=== PATIENT | female | born 1950 | race Caucasian/White ===

== ENCOUNTER 2020-06-08 12:00 | Outpatient (REF) | payer OTHER, SELFPAY | END 2020-06-08 12:01 | disposition home or self-care (01) | LOC: HO.10HDL 12:00 | PROVIDERS: Visit Provider Otolaryngology | DX: B37.9 Candidiasis, unspecified (principal) | CPT/HCPCS: 87102 ==

== ENCOUNTER 2020-09-01 11:47 | Inpatient (IN) | payer MEDICARE, BC, SELFPAY ==
[2020-09-01] VITALS (8 sets, daily range): BP systolic 111–151; BP diastolic 58–79; PULSE 57–84; RESP 16–18; TEMP 36.5–36.9; O2SAT 94–98; BMI 28.0
--- NOTE | ~2020-09-01 | FL_ITS ---
EXAMINATION: FL SMALL BOWEL SERIES CLINICAL INFORMATION: Question intussusception COMPARISON: CT abdomen of September 01, 2020 TECHNIQUE: Following a carbon paper interleafer image of the abdomen, contrast was administered orally, and interval abdominal radiographs were performed to assess for contrast progression through the small bowel. Following contrast transit through the small bowel and into the colon, the patient was placed on the fluoroscopy table, and multiple spot images were obtained. FINDINGS: Instructor Weaving image of the abdomen demonstrates large amount of stool throughout the colon. No dilated loops of large or small bowel are evident. No pneumatosis intestinalis. There is normal transit time of contrast material through the small bowel, with contrast present in the colon by 1 hour 20 minutes. Small bowel loops are of normal caliber throughout the abdomen and pelvis. The jejunal and ileal fold patterns are normal, without evidence of abnormal thickening. No persistent fixed regions of luminal narrowing are seen to suggest stricturing. The terminal ileum demonstrates a normal appearance. On a single image overlying the spine is question of filling defect within a loop of small bowel however this could not be replicated on spot compression views. No dilated bowel is seen adjacent to this site. Reduced intussusception cannot be excluded on this study. FLUOROSCOPY TIME: 2.0 minutes DOSE AREA PRODUCT: 19.8633 Gysq cm FL/FL small bowel follow through IMPRESSION: Normal small bowel series without persistent evidence of intussusception..
--- NOTE | ~2020-09-01 | CT_ITS ---
EXAMINATION: CT ABDOMEN AND PELVIS WITHOUT CONTRAST CLINICAL INFORMATION: Left lower abdominal pain. COMPARISON: None TECHNIQUE: Multidetector volumetric imaging was performed from the superior aspect of the liver through the pubic symphysis. Sagittal and coronal reformatted images were obtained on the technologist's workstation. This CT examination was performed using dose optimization techniques as appropriate, variously including the following: *Automated exposure control *Adjustment of mA and/or kV according to patient size (this includes techniques or standardized protocols for targeted exams where dose is matched to indication/reason for exam; i.e. extremities or head) *Use of iterative reconstruction technique DLP: 472 mGy-cm FINDINGS: LUNG BASES: The visualized lung bases are unremarkable. LIVER, GALLBLADDER, AND BILIARY TREE: The liver is normal in size, shape, and attenuation. No focal hepatic lesion or biliary ductal dilatation is present. The gallbladder is unremarkable with no evidence of radiopaque gallstones, gallbladder wall thickening, or obvious pericholecystic inflammatory changes. PANCREAS: Unremarkable. SPLEEN: Unremarkable. ADRENAL GLANDS: Unremarkable. KIDNEYS AND URETERS: The kidneys are normal in size, shape, and attenuation. No hydronephrosis, hydroureter, or calculi seen. No perinephric stranding. BLADDER: Unremarkable. GASTROINTESTINAL TRACT: There is moderate stool and gas seen throughout the colon without significant distention. The small bowel loops are mildly prominent with fluid. There is a abnormal small bowel segment which appears to be intussuscepting or a small intraluminal filling defect on axial image 59/3 ABDOMINAL WALL: No significant hernia is appreciated. LYMPH NODES: Normal. VASCULAR: Unremarkable. PELVIC VISCERA: The uterus is bulky and retroverted question fibroid disease. There is no free fluid. No adnexal mass seen. OSSEOUS STRUCTURES: Unremarkable. CT/CT abdomen pelvis wo con IMPRESSION: Large bulky reported uterus likely fibroid disease. Suspect intussuscepting small bowel loop in the left midabdomen or intraluminal filling defect likely polyp or mass. This is best visualized on axial image 58/3. There is proximal small bowel mild distention with fluid. Mild constipation.
--- NOTE | 2020-09-01 12:50 | ED.GENADULT ---
HPI - General Adult General Chief complaint: General Medical Stated complaint: abd pain Time Seen by Provider: 09/01/20 12:50 Source: patient Mode of arrival: ambulatory Limitations: no limitations History of Present Illness HPI narrative: patient comes in for abdominal distention and pain. Feels at times that her abdomen is bloated for the past few weeks Onset (ago): week(s) Location: abdomen Radiation: non-radiation Severity: moderate Pain Consistency: intermittent Relieving factors: none Exacerbating factors: none Related Data Home Medications Medication Instructions Recorded Confirmed ezetimibe 10 mg PO DAILY 09/01/20 09/01/20 fluticasone propionate 1 spray INTRANASAL BID 09/01/20 09/01/20 loratadine 10 mg PO DAILY 09/01/20 09/01/20 losartan 100 mg PO DAILY 09/01/20 09/01/20 cholecalciferol (vitamin D3) 25 25 mcg PO DAILY 09/09/20 mcg (1,000 unit) capsule Previous Rx's Medication Instructions Recorded docusate sodium [Colace] 100 mg PO BID #60 cap 09/03/20 Allergies Allergy/AdvReac Type Severity Reaction Status Date / Time heparin Allergy Abdominal Verified 09/09/20 15:02 Pain Review of Systems Constitutional: Constitutional: Reports no additional constitutional complaints Eyes: Eyes: Reports no additional eye complaints ENT: Denies dizziness Cardiovascular: Cardiovascular: Reports no additional cardiovascular complaints Respiratory: Respiratory: Reports as per HPI Gastrointestinal: Gastrointestinal: Reports no additional gastrointestinal complaints Genitourinary: Genitourinary: Reports no additional female genitourinary complaints Musculoskeletal: Musculoskeletal: Reports no additional musculoskeletal complaints Integumentary/Breasts: Skin/Breast: Denies rash Neurologic: Reports system reviewed and no additional complaints, except as documented, Denies dizziness and Denies Sensory deficit (Neuro) Psychiatric: Psychiatric: Denies anxiety PMFSH Past Medical History Medical History Abdominal pain HTN (hypertension) with goal to be determined Optic neuritis Social History Social History Household Members: Spouse Housing: House Do you presently have visiting nurse or other home services: No Alcohol intake: current Alcohol intake frequency: holidays/special occasions only Alcohol type: beer, wine and hard liquor Patient Tobacco Use Status: Current someday Tobacco user Tobacco use type: Cigar Physical Exam Vital Signs: Vital Signs: Last Vital Signs Temp 97.1 F 09/03/20 08:00 Pulse 64 09/03/20 08:00 Resp 16 09/03/20 08:00 BP 127/73 09/03/20 08:00 Pulse Ox 98 09/03/20 08:00 Body Mass Index 28.0 Const: General: healthy appearing Nutritional Appearance: average body habitus Orientation/consciousness: oriented to person and patient oriented x3 Limitations: no limitations HENMT: Head: Yes normal to inspection Ears: external ears normal General nose exam: Normal external nose present Mouth: Normal oral and palatal mucosa present and oropharynx normal Throat: Yes posterior oropharynx normal Eyes: General: appearance normal, both eyes and all related structures Neck: Other: supple Neck: Yes normal visual inspection Chest: Chest palpation & inspection: normal inspection of the chest Resp: Auscultation: clear to auscultation bilaterally Cardio: Jugular venous distension: no JVD Rate: regular rate Rhythm: regular rhythm Heart sounds: S1 normal heart sound present and S2 normal heart sound present GI: Other: left lower abdominal pain Auscultation: normal bowel sounds : General: Yes no CVA tenderness Back/Spine/Pelvis: Back: no CVA tenderness Skin: General skin exam: no rashes or lesions noted Neuro: General: oriented to person and patient oriented x3 Cranial nerves: Yes CN's II-XII intact bilaterally Motor exam (neuro): 5/5 motor strength present throughout Sensory Exam: No Sensory deficit (Neuro) Extrem: General: Yes normal to inspection Psych: Appearance: grossly normal Course Course Course Narrative: Discussed with Dr. Cornejo will see patient Reevaluation(s) Reevaluation #1: Dr. Cornejo will admit the patient Time: 16:12 Medical Decision Making [facility] Narrative Medical decision making narrative: With history and CT the decision is made to admit the patient and get small bowel follow up through Lab Data Result diagrams: 09/01/20 13:04 09/01/20 13:04 Labs: Lab Results 09/01/20 09/01/20 09/01/20 Range/Units 13:00 13:04 13:04 WBC 6.9 (4.8-10.8) X10*3/uL RBC 4.44 (4.20-5.50) X10*6/uL Hgb 14.0 (12.0-16.0) g/dl Hct 40.9 (37-47) % MCV 92.1 (80-98) fL MCH 31.5 (27.0-33.0) pg MCHC 34.2 (31.0-35.0) g/dl RDW 12.6 (11.0-16.0) % Plt Count 295 (160-400) X10*3/uL MPV 10.2 (9.4-12.3) fL Immature Gran % (Auto) 0.3 (0.0-0.4) % Neut % (Auto) 53.1 (45-73) % Lymph % (Auto) 35.7 (20-40) % [place] % (Auto) 8.1 (2-11) % Eos % (Auto) 2.2 (0-4) % Baso % (Auto) 0.6 (0-2) % Lymph # (Auto) 2.5 (1.2-4.9) X10*3/uL [place] # (Auto) 0.6 (0.1-1.2) X10*3/uL Eos # (Auto) 0.2 (0.0-0.4) X10*3/uL Baso # (Auto) 0.0 (0.0-0.2) X10*3/uL Abs Immat Gran (auto) 0.02 (0.00-0.03) X10*3/uL Absolute Neuts (auto) 3.7 (2.0-8.3) X10*3/uL Absolute Nucleated RBC 0.000 (0.0-0.012) X10*3/uL Nucleated RBC % (auto) 0.0 (0.0-0.2) /100WBC Sodium 139 (135-145) mmol/L Potassium 4.3 (3.3-5.1) mmol/L Chloride 106 (96-108) mmol/L Carbon Dioxide 22 (22-29) mmol/L Anion Gap 15 (12-20) BUN 10 (9-16) mg/dL Creatinine 0.70 (0.5-1.4) mg/dL Estim Creat Clear Calc 72.9 Estimated GFR > 60 Random Glucose 135 H (60-115) mg/dL Calcium 9.6 (8.4-10.2) mg/dL Total Bilirubin 0.9 (0.0-1.0) mg/dL Direct Bilirubin 0.3 (0.0-0.5) mg/dL AST 21 (5-31) U/L ALT 28 (0-31) U/L Alkaline Phosphatase 85 (39-117) U/L Total Protein 6.9 (6.5-8.0) g/dL Albumin 4.4 (3.5-5.0) g/dL Lipase 15 (8-78) U/L Urine Color STRAW Urine Appearance CLEAR Urine pH 6.0 (5.0-8.0) Ur Specific [place] <= 1.005 (1.005-1.025) Urine Protein NEG (NEG-TRACE) MG/DL Urine Glucose (UA) NEG (NEG) MG/DL Urine Ketones NEG (NEG) MG/DL Urine Blood TRACE (NEG) Urine Nitrite NEG (NEG) Ur Leukocyte Esterase NEG (NEG) Urine RBC 0-2 (0) /HPF Urine WBC 0 (0-4) /HPF Ur Squamous Epith Cells TRACE /LPF Urine Bacteria NONE /LPF Imaging Data CT scan - abdomen: Radiologist's impression: IMPRESSION: Large bulky reported uterus likely fibroid disease. Suspect intussuscepting small bowel loop in the left midabdomen or intraluminal filling defect likely polyp or mass. This is best visualized on axial image 58/3. There is proximal small bowel mild distention with fluid. Mild constipation. ECG Data Attestation: I personally reviewed and interpreted this ECG as follows: Interpretation: normal sinus rate 67, no st or twave changes Discharge Plan Discharge Clinical Impression: Bowel obstruction, Colonic intussusception Patient Disposition: Admitted As Inpatient Interventions: Admission Worksheet (ED) Last Done: 09/01/20 18:50 Discharge Date/Time: 09/01/20 18:56
--- NOTE | 2020-09-01 12:54 | ECG_ITS ---
Test Reason : SOB Blood Pressure : / mmHG Vent. Rate : 067 BPM Atrial Rate : 067 BPM P-R Int : 156 ms QRS Dur : 078 ms QT Int : 426 ms P-R-T Axes : 003 008 007 degrees QTc Int : 450 ms Normal sinus rhythm Normal ECG When compared with ECG of 21-JUL-2004 10:17, T wave inversion now evident in Inferior leads Referred By: Joss Vazquez Electronically Signed By:DONNA FERMIN
[2020-09-01 13:09] LABS: MANUAL DIFF FLAG NO
[2020-09-01 13:10] LABS: Basophils Percent Auto 0.6 % (0-2); Eosinophils Absolute Auto 0.2 X10*3/uL (0.0-0.4); Eosinophils Percent Auto 2.2 % (0-4); Hematocrit 40.9 % (37-47); Imm Gran Abs Auto 0.02 X10*3/uL (0.00-0.03); Imm Gran Pct Auto 0.3 % (0.0-0.4); Lymphocytes Absolute Auto 2.5 X10*3/uL (1.2-4.9); Lymphocytes Percent Auto 35.7 % (20-40); Mean Corpuscular HGB Conc 34.2 g/dl (31.0-35.0); Mean Corpuscular Hemoglobin 31.5 pg (27.0-33.0); Mean Corpuscular Volume 92.1 fL (80-98); Mean Platelet Volume 10.2 fL (9.4-12.3); Monocytes Absolute Auto 0.6 X10*3/uL (0.1-1.2); Monocytes Percent Auto 8.1 % (2-11); Neutrophils Absolute Auto 3.7 X10*3/uL (2.0-8.3); Neutrophils Percent Auto 53.1 % (45-73); Platelet Count 295 X10*3/uL (160-400); Red Blood Count 4.44 X10*6/uL (4.20-5.50); Red Cell Distribution Width 12.6 % (11.0-16.0); White Blood Count 6.9 X10*3/uL (4.8-10.8)
[2020-09-01 13:11] LABS: Glucose Urine UA NEG (NEG); Leukocyte Esterase Urine NEG (NEG); Nitrite Urine NEG (NEG); Specific Gravity - Urine <= 1.005 (1.005-1.025); Urine Blood TRACE (NEG); Urine Ketones NEG (NEG); Urine Protein NEG (NEG-TRACE)
[2020-09-01 13:13] LABS: Appearance Urine CLEAR; Color Urine STRAW
[2020-09-01 13:16] LABS: RBC Urine 0-2 /HPF (0); Squamous Epithelial Cell Urine TRACE /LPF; WBC Urine 0 /HPF (0-4)
[2020-09-01 13:40] LABS: Alanine Aminotransferase 28 U/L (0-31); Albumin Level 4.4 g/dL (3.5-5.0); Alkaline Phosphatase 85 U/L (39-117); Anion Gap 15 (12-20); Aspartate Amino Transferase 21 U/L (5-31); Bilirubin Direct 0.3 mg/dL (0.0-0.5); Bilirubin Total 0.9 mg/dL (0.0-1.0); Blood Urea Nitrogen 10 mg/dL (9-16); Calcium 9.6 mg/dL (8.4-10.2); Chloride 106 mmol/L (96-108); Creatinine Clr Calc Pharmacy 72.9; Estimated Glomerular Filt Rate > 60; Glucose Random 135 mg/dL (60-115); Lipase 15 U/L (8-78); Potassium 4.3 mmol/L (3.3-5.1); Sodium 139 mmol/L (135-145); Total Protein 6.9 g/dL (6.5-8.0)
[2020-09-01 13:43] LABS: Carbon Dioxide 22 mmol/L (22-29)
[2020-09-01] MEDS: Pantoprazole Sodium 40 MG/10 ML VIAL IVPUSH (14:08)
[2020-09-01] MEDS: 0.9 % Sodium Chloride 1,000 ML 125 ML IVCONT (14:12)
--- NOTE | 2020-09-01 16:01 | PM.HPGS ---
History of Present Illness History of Present Illness Date of Service: 09/03/20 Chief complaint: Abdominal pain Narrative: Pricila Andrade is a 70 year old female who came to the emergency room today because of upper abdominal pain. She states that she has been having this for about a month now. She describes vague pains on the upper abdomen periodically. Denies any nausea or vomiting. She denies any diarrhea constipation. She says she has had good oral intake. She says had been busy with taking care of her daughter who has MS, as well as her who was sick with fevers in the hospital for 2 weeks so he did not see any physician earlier. She says that the pain can sometimes be ?severe?. This is usually constant but low intensity. She denies any blood per rectum. She has never had any colonoscopy in the past. Review of Systems Constitutional: Constitutional: Denies chills and Denies fever(s) Cardiovascular: Cardiovascular: Denies chest pain, Denies dyspnea and Denies dyspnea on exertion Respiratory: Respiratory: Denies cough, Denies dyspnea and Denies dyspnea on exertion Gastrointestinal: Gastrointestinal: Denies hematochezia and Denies change in bowel habits Genitourinary: Genitourinary: Denies hematuria Musculoskeletal: Musculoskeletal: Denies back pain and Denies limited range of motion Neurologic: Denies focal weakness and Denies convulsions Psychiatric: Psychiatric: Denies depression and Denies mood swings PMFSH Past Medical History Medical History (Updated 09/01/20 @ 17:25 by Pop Cornejo MD) Abdominal pain HTN (hypertension) with goal to be determined Optic neuritis Social History Social History Household Members: Spouse Housing: House Do you presently have visiting nurse or other home services: No Alcohol intake: current Alcohol intake frequency: holidays/special occasions only Alcohol type: beer, wine and hard liquor Patient Tobacco Use Status: Current someday Tobacco user Tobacco use type: Cigar Meds Allergies Allergy/AdvReac Type Severity Reaction Status Date / Time heparin Allergy Abdominal Verified 09/01/20 12:09 Pain Active Medications: Current Medications Generic Name Dose Route Start Last Admin Trade Name Freq PRN Reason Stop Dose Admin Sodium Chloride 1,000 mls @ 125 mls/hr 09/01/20 13:00 09/01/20 14:12 Ns IVCONT 125 mls/hr .Q8H MAURICE Administration Dextrose/Sodium Chloride 1,000 mls @ 80 mls/hr 09/01/20 16:00 D5ns IVCONT .[id number] [facility] Morphine Sulfate 0.5 mg 09/01/20 15:58 Morphine Sulfate 2 Mg/Ml Cartridge IVPUSH Q3H PRN pain Sodium Chloride 3 ml 09/01/20 16:00 0.9 % Sodium Chloride Flush 3 Ml Syringe IVFLUSH QSHIFT [facility] Home Medications Medication Instructions Recorded Confirmed Last Taken Type ezetimibe 10 mg PO DAILY 09/01/20 09/01/20 Unknown History fluticasone propionate 1 spray INTRANASAL BID 09/01/20 09/01/20 Unknown History loratadine 10 mg PO DAILY 09/01/20 09/01/20 09/01/20 History losartan 100 mg PO DAILY 09/01/20 09/01/20 09/01/20 History Physical Exam Vital Signs: Vital Signs: Last Vital Signs Temp 98.0 F 09/01/20 12:55 Pulse 59 09/01/20 14:43 Resp 16 09/01/20 14:43 BP 114/59 L 09/01/20 14:43 Pulse Ox 94 09/01/20 14:43 Body Mass Index 28.0 Const: General: comfortable and no acute distress Orientation/consciousness: patient oriented x3 Neck: Neck: Yes no lymphadenopathy Resp: Auscultation: clear to auscultation bilaterally Cardio: Rhythm: regular rhythm GI: Other: Nondistended, very minimal tenderness to the upper abdomen with deep palpation Palpation (GI): Soft to palpation, not firm, nontender, no guarding and not rigid Neuro: General: patient oriented x3 Results Results Labs: Short CBC 09/01/20 Range/Units 13:04 WBC 6.9 (4.8-10.8) X10*3/uL Hgb 14.0 (12.0-16.0) g/dl Hct 40.9 (37-47) % Plt Count 295 (160-400) X10*3/uL BMP 09/01/20 13:04 Sodium 139 Potassium 4.3 Chloride 106 Carbon Dioxide 22 BUN 10 Creatinine 0.70 Calcium 9.6 Liver Function 09/01/20 Range/Units 13:04 Total Bilirubin 0.9 (0.0-1.0) mg/dL Direct Bilirubin 0.3 (0.0-0.5) mg/dL AST 21 (5-31) U/L ALT 28 (0-31) U/L Alkaline Phosphatase 85 (39-117) U/L Albumin 4.4 (3.5-5.0) g/dL Urine 09/01/20 Range/Units 13:00 Urine Color STRAW Urine Appearance CLEAR Urine pH 6.0 (5.0-8.0) Ur Specific [place] <= 1.005 (1.005-1.025) Urine Protein NEG (NEG-TRACE) MG/DL Urine Glucose (UA) NEG (NEG) MG/DL Abdomen CT scan report/results: report reviewed and image reviewed CT scan - pelvis: report reviewed and image reviewed Assessment and Plan (1) Abdominal pain: Status: Acute Her CT scan suggests intussusception of a smal bowel segment. Clinically, she does not appear osbtructed. Her CT scan does not show sigficant proximal dilatation. She has a very bengin exam as well. Her labs are unremarkable. In view of this CT scan fnding however, as well as her complaints of abdominal pain x 1 month, with question of a partial small-bowel obstruction, I will admit her. I have scheduled her for a small bowel series to further define the abrnormal segment on CT scan. She otherwise does not appear toxic. She understands the plan. Procedures Date of Service Date of Service: 09/03/20
[2020-09-01 16:51] LABS: IDNOW Serial# 9DD0AD1C
[2020-09-01 16:52] LABS: COVID-19 Test Negative (Negative)
[2020-09-01] MEDS: 0.9 % Sodium Chloride Flush 3 ML SYRINGE IVFLUSH ×2 (16:59→20:51)
[2020-09-01] MEDS: Dextrose 5 % and 0.9 % NaCl 1,000 ML 80 ML IVCONT (17:06)
[2020-09-01] MEDS: Losartan Potassium 50 MG TABLET 100 MG PO (17:30)
--- NOTE | 2020-09-01 18:51 | HE.PHANOTE ---
Pharmacy has completed the medication reconciliation and there were no significant medication issues requiring provider attention. Told to stop nystatin yesterday
[2020-09-02 03:10] VITALS: BP 130/79; PULSE 64; RESP 18; TEMP 36.3; O2SAT 98
[2020-09-02] MEDS: Dextrose 5 % and 0.9 % NaCl 1,000 ML 80 ML IVCONT ×2 (04:29→16:11)
[2020-09-02 07:53] VITALS: BP 122/61; PULSE 60; RESP 17; TEMP 36.3; O2SAT 95
--- NOTE | 2020-09-02 09:04 | MHC.CM.PN ---
CM ATTEMPTED TO MEET W/PT HOWEVER PT OFF UNIT IN RADIOLOGY, WILL REATTEMPT LATER IN MORNING.
[2020-09-02 11:24] VITALS: BP 115/60; PULSE 58; RESP 18; TEMP 36.4; O2SAT 96
--- NOTE | 2020-09-02 13:57 | MHC.CM.PN ---
IMM 09/02/20, EMR REVIEWED, PT ADMITTED W/ABDOMINAL PAIN, PT LIVES W/ AND ASSISTS HER DTR W/MS, PT INDEPENDENT, NO DME AND NO HOME SERVICES. PER PT SHE WILL NEED TO BE D/C'D BEFORE DARK DUE TO HER NOT BEING ABLE TO DRIVE IN THE [place], PT VERIFIES PCP AND PHARMACY, PT DENIES HAVING HCP, CM HAS OFFFERED TO COMPLETE PRIOR TO D/C. D/C PLAN: HOME SELF-CARE, TO TRANSPORT PCP: ALFREDO MOYA : MARK LOJA [phone]
[2020-09-02 15:09] VITALS: BP 125/71; PULSE 63; RESP 18; TEMP 36.7; O2SAT 96
[2020-09-02] MEDS: Acetaminophen 325 MG TABLET PO (15:24)
[2020-09-02 19:27] VITALS: BP 108/54; PULSE 67; RESP 12; TEMP 36.6; O2SAT 97
[2020-09-02 23:23] VITALS: BP 106/53; PULSE 59; RESP 17; TEMP 36.4; O2SAT 98
[2020-09-03 03:32] VITALS: BP 136/67; PULSE 75; RESP 16; TEMP 36.8; O2SAT 97
[2020-09-03] MEDS: Dextrose 5 % and 0.9 % NaCl 1,000 ML 80 ML IVCONT (05:17)
[2020-09-03 08:00] VITALS: BP 127/73; PULSE 64; RESP 16; TEMP 36.2; O2SAT 98
[2020-09-03] MEDS: 0.9 % Sodium Chloride Flush 3 ML SYRINGE IVFLUSH (08:08)
--- NOTE | 2020-09-03 08:55 | MHC.CM.PN ---
Pt will DC home today with no services. Family to transport
--- NOTE | 2020-09-03 09:15 | PM.PNGS ---
Subjective Subjective Date of Service: 09/03/20 Interval history: Patient feels well Denies abdominal pain Tolerating diet Good BMs and flatus No problems with small bowel series yesterday Physical Exam Vital Signs: Vital Signs: Last Vital Signs Temp 97.1 F 09/03/20 08:00 Pulse 64 09/03/20 08:00 Resp 16 09/03/20 08:00 BP 127/73 09/03/20 08:00 Pulse Ox 98 09/03/20 08:00 Body Mass Index 28.0 Const: General: comfortable and no acute distress Resp: Effort & Inspection: normal respiratory effort Cardio: Rhythm: regular rhythm GI: Palpation (GI): Soft to palpation, nontender, no guarding and not rigid Progress Note: A&P Assessment and plan (1) Abdominal pain: Status: Acute Assessment and Plan: Her CAT scan had shown suggestion of intussusception of the small bowel Small bowel series done yesterday - unremarkable, no evidence of any obstruction, intussusception nor lesions in the small bowel Tolerating diet Denies abdominal pain Also has constipation Plan to DC home today with stool softeners as well Okay to follow-up in the office She has never had a colonoscopy for screening - I have recommend this to her Fall Risk Details Current Medications: Current Medications Generic Name Dose Route Start Last Admin Trade Name Freq PRN Reason Stop Dose Admin Acetaminophen 325 mg 09/02/20 14:32 09/02/20 15:24 Acetaminophen 325 Mg Tablet PO 325 mg Q6H PRN Administration headache Dextrose/Sodium Chloride 1,000 mls @ 80 mls/hr 09/01/20 16:00 09/03/20 05:17 D5ns IVCONT 80 mls/hr .[id number] [facility] Administration Morphine Sulfate 1 mg 09/01/20 17:23 Morphine Sulfate 2 Mg/Ml Cartridge IVPUSH Q3H PRN pain Ondansetron HCl 4 mg 09/01/20 17:23 Ondansetron Hcl 4 Mg/2 Ml Vial IVPUSH Q8H PRN nausea Sodium Chloride 3 ml 09/01/20 16:00 09/03/20 08:08 0.9 % Sodium Chloride Flush 3 Ml Syringe IVFLUSH 3 ml QSHIFT [facility]URICE Administration Time Spent With Patient Time: Total time spent is greater than 50% in coordination of care (as documented) at patient's floor/unit and/or counseling patient: Time with patient: 15 - 24 minutes Procedures Date of Service Date of Service: 09/03/20
--- NOTE | 2020-09-07 17:11 | P.DS_ITS ---
DS: Providers Provider Date of Service: 09/03/20 Date of admission: 09/01/20 14:39 Primary care physician: Melchor Mejia MD DS: Diagnosis Discharge Diagnosis (1) Abdominal pain: Status: Acute Problem details: [age] year female who came in because of a 2 day history of abdominal pains. She had a CAT scan showing what appeared to be an intussusception of the segment of the jejunum. However, on examination she was not obstructed and had a very benign exam. She was initially kept NPO. Since she remained asymptomatic, I started her on liquids on her 2nd day in the hospital. She continued to tolerate this. She remained asymptomatic without any abdominal pain anymore. She did not have any nausea or vomiting. I assured her to have a small bowel series which was unremarkable. I therefore started on regular diet which she continued to tolerate. She was therefore discharged home on September 03, 2020. DS: Medications Discharge Medications Home Medications: Home Medications Medication Instructions Recorded Confirmed ezetimibe 10 mg PO DAILY 09/01/20 09/01/20 fluticasone propionate 1 spray INTRANASAL BID 09/01/20 09/01/20 loratadine 10 mg PO DAILY 09/01/20 09/01/20 losartan 100 mg PO DAILY 09/01/20 09/01/20 Previous Rx's Medication Instructions Recorded docusate sodium [Colace] 100 mg PO BID #60 cap 09/03/20 DS: Summary Time Spent with Patient Time attestation: Total time spent providing and/or coordinating discharge services: Discharge coordination time: Less than 30 minutes Quality: Stroke Does the patient have a stroke diagnosis?: No Physical Exam Vital Signs: Vital Signs: Last Vital Signs Temp 97.1 F 09/03/20 08:00 Pulse 64 09/03/20 08:00 Resp 16 09/03/20 08:00 BP 127/73 09/03/20 08:00 Pulse Ox 98 09/03/20 08:00 Body Mass Index 28.0 Const: General: comfortable and no acute distress Or ientation/consciousness: patient oriented x3 Neck: Neck: Yes no lymphadenopathy Resp: Auscultation: clear to auscultation bilaterally Cardio: Rhythm: regular rhythm GI: Palpation (GI): Soft to palpation, nontender and no guarding Neuro: General: patient oriented x3 Discharge Plan Discharge Patient Disposition: Home, Self-Care Discharge Diagnosis: abdominal pain, small bowel instususception on CT Referrals: Melchor Mejia MD [Primary Care Provider] - 1 Week Pop Cornejo MD [Physician] - 1 Week Discharge Medications: New docusate sodium [Colace] 100 mg capsule 100 mg PO BID Qty: 60 RF: 2 Continued losartan 100 mg tablet 100 mg PO DAILY RF: 0 fluticasone propionate 50 mcg/actuation spray,suspension 1 spray intranasal BID RF: 0 loratadine 10 mg tablet 10 mg PO DAILY RF: 0 ezetimibe 10 mg tablet 10 mg PO DAILY RF: 0 Discharge Orders: Discharge Order (Routine); Ordered 09/03/20 Ordered By: Pop Cornejo Activity on Discharge: As tolerated Stand Alone Forms: Patient Portal Discharge page Care Plan Goals: okay to ffup in office elective screening colonoscopy Health Concerns: abdominal pain constipation Plan of Treatment: ffp with PCP schedule for screening colonoscopy Assessment: doing well Discharge Date/Time: 09/03/20 12:12
== END 2020-09-03 12:12 | disposition home or self-care (01) | DRG 392 ==
LOC: HO.ED 16:14 → HO.EDOVER 18:39 → HO.S3 18:39
PROVIDERS: Admitting Provider Surgery; Emergency Provider Emergency Medicine; PCP Internal Medicine; Visit Provider Surgery
DX: R10.9 Unspecified abdominal pain (principal); I10 Essential (primary) hypertension; K59.00 Constipation, unspecified; Z20.822 Contact with and (suspected) exposure to COVID-19; F17.290 Nicotine dependence, other tobacco product, uncomplicated; Z71.6 Tobacco abuse counseling; Z79.51 Long term (current) use of inhaled steroids; Z79.899 Other long term (current) drug therapy
CPT/HCPCS: 36415; 74176; 74250; 80048; 80076; 81001; 83690; 85025; 87635; 93005; 96374; 99285

== ENCOUNTER → 2020-09-09 14:40 | Outpatient (BNVA) | payer MEDICARE, BC, SELFPAY | PROVIDERS: PCP Internal Medicine; Visit Provider Surgery | DX: K56.609 Unspecified intestinal obstruction, unspecified as to partial versus complete obstruction (principal); K56.1 Intussusception; K59.00 Constipation, unspecified; R10.9 Unspecified abdominal pain; I10 Essential (primary) hypertension; Z88.8 Allergy status to other drugs, medicaments and biological substances | CPT/HCPCS: 99212 ==

== ENCOUNTER → 2021-02-16 10:10 | Outpatient (BNVA) | payer MEDICARE, BC, SELFPAY | PROVIDERS: PCP Internal Medicine; Referring Provider Internal Medicine; Visit Provider Surgery | DX: R19.8 Other specified symptoms and signs involving the digestive system and abdomen (principal) | CPT/HCPCS: 46600; 99212 ==

== ENCOUNTER 2021-10-17 06:36 | Day surgery (SDC) | payer MEDICARE, BC, SELFPAY ==
[2021-10-11 15:08] VITALS: BMI 29.0
--- NOTE | 2021-10-13 13:21 | MHC.SHP ---
Pre-Procedural Eval Section A Date of Service: 10/13/21 The patient is an INPATIENT: No Changes since office visit: No Cold of Flu in the past 2 weeks, No New Medical Problems, No Changes in Medication and No Patient answered all questions The History & Physical has been completed within 30 days and I have reviewed it.: Yes Section B Chief Complaint: cataract Allergies: Allergies Allergy/AdvReac Type Severity Reaction Status Date / Time heparin Allergy Intermediate Abdominal Verified 10/11/21 15:13 Pain colestipol [From Colestid] AdvReac Intermediate muscle Verified 10/11/21 15:13 weakness erythromycin base AdvReac Intermediate Nausea Verified 10/11/21 15:13 ezetimibe [From Zetia] AdvReac Intermediate myalgias Verified 10/11/21 15:13 [id number] Reductase AdvReac Intermediate myalgias Verified 10/11/21 15:13 Inhibitor Plan I have reviewed the history and physical and performed a pertinent physical examination on my patient. No changes have occurred unless specified.
--- NOTE | 2021-10-14 09:01 | P.CONAN_ITS ---
Documented by User: Hannah Garcia NP 10/14/21 09:02 HPI - Anesthesia Eval Consult details Narrative: 71yo F for Right Cataract Extraction IOL Insertion PCP cleared No previous cataract on record [facility] Active Problems Active Problems: All Active Problems (Updated 10/11/21 @ 15:08 by Flavia Singleton RN) Rectal pressure (Acute) HTN (hypertension) with goal to be determined (Acute) Optic neuritis (Acute) Past Medical History Medical History Abdominal pain Anxiety BPPV (benign paroxysmal positional vertigo) Cervical stenosis of spine COVID-19 vaccine series completed Elevated cholesterol Fatty liver Fibromyalgia HTN (hypertension) with goal to be determined Optic neuritis Osteopenia Peripheral neuropathy Post-operative nausea and vomiting Rectal pressure Skin cancer Type 2 diabetes mellitus Surgical History Surgical History History of laryngoscopy History of lobectomy of thyroid Hx of cholecystectomy Hx of cystoscopy Hx of laparoscopy Social History Social History Household Members: Spouse Housing: House Are you a primary care transition coordinator to a significant other at home: No Do you presently have visiting nurse or other home services: No Alcohol intake: current Alcohol intake frequency: holidays/special occasions only Alcohol type: beer, wine and hard liquor Patient Tobacco Use Status: Never used Tobacco Tobacco use type: Cigar Use of substances other than those prescribed or required for medical reasons: No Have you been hit, kicked, punched, or otherwise hurt by someone within the past year? If so, by whom?: No Are you DNR?: No Advance Directives: No (states has a HCP but not sure if has official form @ home) Advance Directives Information Provided: Yes (brochure mailed) Advance Directives on File: No Recently lost weight without trying: No Eating poorly because of decreased appetite: No Nutrition Risks: No Nutritional Risk Poor oral hygiene: No Meds Allergies Allergy/AdvReac Type Severity Reaction Status Date / Time heparin Allergy Intermediate Abdominal Verified 10/11/21 15:13 Pain colestipol [From Colestid] AdvReac Intermediate muscle Verified 10/11/21 15:13 weakness erythromycin base AdvReac Intermediate Nausea Verified 10/11/21 15:13 ezetimibe [From Zetia] AdvReac Intermediate myalgias Verified 10/11/21 15:13 Bqjibaw-SUB-JnM Reductase AdvReac Intermediate myalgias Verified 10/11/21 15:13 Inhibitor Home Medications Medication Instructions Recorded Confirmed Last Taken Type fluticasone propionate 50 1 spray intranasal BID 09/01/20 10/11/21 Unknown History mcg/actuation nasal spray,suspension loratadine 10 mg tablet 10 mg PO DAILY 09/01/20 10/11/21 09/01/20 History losartan 100 mg tablet 100 mg PO DAILY 09/01/20 10/11/21 09/01/20 History cholecalciferol (vitamin D3) 25 25 mcg PO DAILY 09/09/20 10/11/21 Unknown History mcg (1,000 unit) capsule meclizine 25 mg tablet 25 mg PO TID PRN Vertigo 10/11/21 10/11/21 Unknown History Exam Exam Date and Time: October 14, [id number] Height,Weight and Vital Signs: Height 5 ft 3 in Weight 74.3 kg Assessment and Plan Assessment Anesthesia Assessment: Chart Reviewed Documented by User: Trace Myers MD 10/17/21 07:45 [facility] Past Medical History Medical History Abdominal pain Anxiety BPPV (benign paroxysmal positional vertigo) Cervical stenosis of spine COVID-19 vaccine series completed Elevated cholesterol Fatty liver Fibromyalgia HTN (hypertension) with goal to be determined Optic neuritis Osteopenia Peripheral neuropathy Post-operative nausea and vomiting Rectal pressure Skin cancer Type 2 diabetes mellitus Family History Family history of problems with anesthesia: No Surgical History Surgical History History of laryngoscopy History of lobectomy of thyroid Hx of cholecystectomy Hx of cystoscopy Hx of laparoscopy History of Problems with Anesthesia: No Social History Social History Household Members: Spouse Housing: House Are you a primary care transition coordinator to a significant other at home: No Do you presently have visiting nurse or other home services: No Alcohol intake: current Alcohol intake frequency: holidays/special occasions only Alcohol type: beer, wine and hard liquor Patient Tobacco Use Status: Never used Tobacco Tobacco use type: Cigar Use of substances other than those prescribed or required for medical reasons: No Have you been hit, kicked, punched, or otherwise hurt by someone within the past year? If so, by whom?: No Are you DNR?: No Advance Directives: No (states has a HCP but not sure if has official form @ home) Advance Directives Information Provided: Yes (brochure mailed) Advance Directives on File: No Recently lost weight without trying: No Eating poorly because of decreased appetite: No Nutrition Risks: No Nutritional Risk Poor oral hygiene: No Meds Allergies Allergy/AdvReac Type Severity Reaction Status Date / Time heparin Allergy Intermediate Abdominal Verified 10/11/21 15:13 Pain colestipol [From Colestid] AdvReac Intermediate muscle Verified 10/11/21 15:13 weakness erythromycin base AdvReac Intermediate Nausea Verified 10/11/21 15:13 ezetimibe [From Zetia] AdvReac Intermediate myalgias Verified 10/11/21 15:13 Aqrzjpc-MBA-KfG Reductase AdvReac Intermediate myalgias Verified 10/11/21 15:13 Inhibitor Home Medications Medication Instructions Recorded Confirmed Last Taken Type fluticasone propionate 50 1 spray intranasal BID 09/01/20 10/11/21 Unknown History mcg/actuation nasal spray,suspension loratadine 10 mg tablet 10 mg PO DAILY 09/01/20 10/11/21 09/01/20 History losartan 100 mg tablet 100 mg PO DAILY 09/01/20 10/11/21 09/01/20 History cholecalciferol (vitamin D3) 25 25 mcg PO DAILY 09/09/20 10/11/21 Unknown History mcg (1,000 unit) capsule meclizine 25 mg tablet 25 mg PO TID PRN Vertigo 10/11/21 10/11/21 Unknown History Exam Airway Mallampati Class: II TM Dist: >3cm Neck ROM: Full Loose/Missing/Broken Teeth: No (stained, no loose) Heart: [id number]+[id number] Lungs: cta b/l Assessment and Plan Assessment Anesthesia Assessment: Anesthesia Plan Discussed Final Anesthetic Review Family History of Problems with Anesthesia: No History of Problems with Anesthesia: No NPO: Yes ASA Class: III Final Preanesthetic Review: No Changes in Pt Med Stat, Meds/Allgs Chart Reviewed, Consent Obtained/Reviewed and Anes Risks/Benef Reviewed Patient Risk: Intermediate Procedure Risk: Low Assessment/Block/Sedation in SS: Assess/Block/Sedation-SS Anesthetic Plan Anesthetic Plan: MAC: and Agree w/ Assess. and Plan Disposition: Standard PACU
[2021-10-17 06:49] VITALS: BP 152/49; PULSE 56; RESP 16; TEMP 36; O2SAT 97
[2021-10-17] MEDS: Lactated Ringers 500 ML 50 ML IV (06:55)
[2021-10-17] MEDS: Tetracaine HCl/PF 0.5% Oph Sol 4 ML DROPS 1 DROP EYE-RIGHT (06:55)
[2021-10-17] MEDS: Cyclopentolate 1 % Ophth Sol 2 ML DRPBTL 1 DROP EYE-RIGHT ×3 (06:56→07:09)
[2021-10-17] MEDS: Tropicamide 1 % Ophth Sol 3 ML BTL 1 DROP EYE-RIGHT ×3 (06:56→07:10)
[2021-10-17] MEDS: Phenylephrine HCL 2.5% Oph SoL 2 ML BOTTLE 1 DROP EYE-RIGHT ×3 (06:59→07:13)
[2021-10-17 10:38] VITALS: BP 116/70; PULSE 53; RESP 16; TEMP 36.3; O2SAT 97
--- NOTE | 2021-10-17 10:38 | HO.PNOPHT ---
Ophthalmology Procedure Procedure Date of Service: 10/17/21 Ophthalmology Viscoelastic: Healdestiny Duet Dual Pack Pro Ophthalmology Lenses: TECNIS CK9639 (16.5) Procedure Notes: PREOPERATIVE DIAGNOSIS: Decreased visual acuity right eye secondary to cataract POSTOPERATIVE DIAGNOSIS: Same PROCEDURE: Right cataract extraction with intraocular lens insertion SURGEON: Ryan Johnson M.D. ANESTHESIA: Topical/MAC ESTIMATED BLOOD LOSS: None COMPLICATIONS: None After obtaining informed consent, the patient was brought to the operating room suite and placed in the supine position. After adequate sedation per anesthesia, topical drops of Tetracaine were given to the right eye. The eye was then prepped and draped in the usual sterile fashion. The operating room microscope was then positioned over the operative eye and a lid speculum placed. A paracentesis was created. Viscoelastic was then instilled into the anterior chamber. A three plane incision was then created temporally, utilizing a 2.85 mm keratome. Capsulotomy forceps were then utilized to create a circular tear capsulotomy. Hydrodissection and hydrodelineation were carried out until adequate mobilization of the nucleus occurred. Phacoemulsification was then utilized to remove the dense central nucleus followed by removal of the cortical material utilizing the automated aspiration irrigation unit. Viscoelastic was instilled into the posterior capsular bag followed by placement of a posterior chamber intraocular lens without difficulty. The residual Viscoelastic was then removed utilizing the automated IA machine. The wound was checked and found to be watertight. The patient tolerated the procedure well and the lid speculum was removed. Intracameral injection of Vigamox 0.1 mL followed by a subtenon injection of Kenalog-40 0.2 mL were administered. The patient will be seen in the a.m.
== END 2021-10-17 11:14 | disposition home or self-care (01) ==
PROVIDERS: PCP Internal Medicine; Visit Provider Ophthalmology
PROC: (CPT 66985; principal; 2021-10-17 09:30)
DX: H25.11 Age-related nuclear cataract, right eye (principal); H52.4 Presbyopia; H47.011 Ischemic optic neuropathy, right eye; E11.21 Type 2 diabetes mellitus with diabetic nephropathy; E11.42 Type 2 diabetes mellitus with diabetic polyneuropathy; F17.200 Nicotine dependence, unspecified, uncomplicated; M79.7 Fibromyalgia; Z79.899 Other long term (current) drug therapy; Z88.1 Allergy status to other antibiotic agents; Z88.8 Allergy status to other drugs, medicaments and biological substances
CPT/HCPCS: 66984; J2250; J2405; J3010; J3300; V2632

== ENCOUNTER 2021-10-31 07:11 | Day surgery (SDC) | payer MEDICARE, BC, SELFPAY ==
[2021-10-11 15:13] VITALS: BMI 29.0
--- NOTE | 2021-10-27 10:16 | MHC.SHP ---
Pre-Procedural Eval Section A Date of Service: 10/27/21 The patient is an INPATIENT: No Changes since office visit: No Cold of Flu in the past 2 weeks, No New Medical Problems, No Changes in Medication and No Patient answered all questions The History & Physical has been completed within 30 days and I have reviewed it.: Yes Section B Chief Complaint: cataract Allergies: Allergies Allergy/AdvReac Type Severity Reaction Status Date / Time heparin Allergy Intermediate Abdominal Verified 10/11/21 15:13 Pain colestipol [From Colestid] AdvReac Intermediate muscle Verified 10/11/21 15:13 weakness erythromycin base AdvReac Intermediate Nausea Verified 10/11/21 15:13 ezetimibe [From Zetia] AdvReac Intermediate myalgias Verified 10/11/21 15:13 Hbhkpez-AIO-EcH Reductase AdvReac Intermediate myalgias Verified 10/11/21 15:13 Inhibitor Plan Diagnosis/Plan: Unchanged I have reviewed the history and physical and performed a pertinent physical examination on my patient. No changes have occurred unless specified.
--- NOTE | 2021-10-28 09:05 | HO.ANESPROP2 ---
Documented by User: Hannah Garcia NP 10/28/21 09:05 HPI - Anesthesia Eval Consult details Narrative: 71yo F for Left Cataract Extraction IOL Insertion PCP cleared Right eye 10/2021 with MAC: Fent 25, Midaz 1, Zofran 4 PMFSH Active Problems Active Problems: All Active Problems (Updated 10/11/21 @ 15:08 by Flavia Singleton RN) Rectal pressure (Acute) HTN (hypertension) with goal to be determined (Acute) Optic neuritis (Acute) Past Medical History Medical History Abdominal pain Anxiety BPPV (benign paroxysmal positional vertigo) Cervical stenosis of spine COVID-19 vaccine series completed Elevated cholesterol Fatty liver Fibromyalgia HTN (hypertension) with goal to be determined Optic neuritis Osteopenia Peripheral neuropathy Post-operative nausea and vomiting Rectal pressure Skin cancer Type 2 diabetes mellitus Family History Family history of problems with anesthesia: No Surgical History Surgical History History of laryngoscopy History of lobectomy of thyroid Hx of cholecystectomy Hx of cystoscopy Hx of laparoscopy History of Problems with Anesthesia: No Social History Social History Household Members: Spouse Housing: House Are you a primary hospice care sales consultant to a significant other at home: No Do you presently have visiting nurse or other home services: No Alcohol intake: current Alcohol intake frequency: holidays/special occasions only Alcohol type: beer, wine and hard liquor Patient Tobacco Use Status: Never used Tobacco Tobacco use type: Cigar Use of substances other than those prescribed or required for medical reasons: No Have you been hit, kicked, punched, or otherwise hurt by someone within the past year? If so, by whom?: No Are you DNR?: No Advance Directives: No Advance Directives Information Provided: Yes (brochure mailed) Advance Directives on File: No Recently lost weight without trying: No Eating poorly because of decreased appetite: No Nutrition Risks: No Nutritional Risk Poor oral hygiene: No Meds Allergies Allergy/AdvReac Type Severity Reaction Status Date / Time heparin Allergy Intermediate Abdominal Verified 10/11/21 15:13 Pain colestipol [From Colestid] AdvReac Intermediate muscle Verified 10/11/21 15:13 weakness erythromycin base AdvReac Intermediate Nausea Verified 10/11/21 15:13 ezetimibe [From Zetia] AdvReac Intermediate myalgias Verified 10/11/21 15:13 Cqawutm-SET-LhH Reductase AdvReac Intermediate myalgias Verified 10/11/21 15:13 Inhibitor Home Medications Medication Instructions Recorded Confirmed Last Taken Type fluticasone propionate 50 1 spray intranasal BID 09/01/20 10/11/21 Unknown History mcg/actuation nasal spray,suspension loratadine 10 mg tablet 10 mg PO DAILY 09/01/20 10/11/21 09/01/20 History losartan 100 mg tablet 100 mg PO DAILY 09/01/20 10/11/21 09/01/20 History cholecalciferol (vitamin D3) 25 25 mcg PO DAILY 09/09/20 10/11/21 Unknown History mcg (1,000 unit) capsule meclizine 25 mg tablet 25 mg PO TID PRN Vertigo 10/11/21 10/11/21 Unknown History Exam Exam Date and Time: October 28, 2021 0905 Height,Weight and Vital Signs: Height 5 ft 3 in Weight 74.3 kg Assessment and Plan Assessment Anesthesia Assessment: Chart Reviewed Final Anesthetic Review Family History of Problems with Anesthesia: No History of Problems with Anesthesia: No Documented by User: Charity Carpneter MD 10/31/21 08:56 [facility] Past Medical History Medical History Abdominal pain Anxiety BPPV (benign paroxysmal positional vertigo) Cervical stenosis of spine COVID-19 vaccine series completed Elevated cholesterol Fatty liver Fibromyalgia HTN (hypertension) with goal to be determined Optic neuritis Osteopenia Peripheral neuropathy Post-operative nausea and vomiting Rectal pressure Skin cancer Type 2 diabetes mellitus Surgical History Surgical History History of laryngoscopy History of lobectomy of thyroid Hx of cholecystectomy Hx of cystoscopy Hx of laparoscopy Social History Social History Household Members: Spouse Housing: House Are you a primary hospice care sales consultant to a significant other at home: No Do you presently have visiting nurse or other home services: No Alcohol intake: current Alcohol intake frequency: holidays/special occasions only Alcohol type: beer, wine and hard liquor Patient Tobacco Use Status: Never used Tobacco Tobacco use type: Cigar Use of substances other than those prescribed or required for medical reasons: No Have you been hit, kicked, punched, or otherwise hurt by someone within the past year? If so, by whom?: No Are you DNR?: No Advance Directives: No Advance Directives Information Provided: Yes (brochure mailed) Advance Directives on File: No Recently lost weight without trying: No Eating poorly because of decreased appetite: No Nutrition Risks: No Nutritional Risk Poor oral hygiene: No Meds Allergies Allergy/AdvReac Type Severity Reaction Status Date / Time heparin Allergy Intermediate Abdominal Verified 10/11/21 15:13 Pain colestipol [From Colestid] AdvReac Intermediate muscle Verified 10/11/21 15:13 weakness erythromycin base AdvReac Intermediate Nausea Verified 10/11/21 15:13 ezetimibe [From Zetia] AdvReac Intermediate myalgias Verified 10/11/21 15:13 Lwzexri-RFI-HbN Reductase AdvReac Intermediate myalgias Verified 10/11/21 15:13 Inhibitor Home Medications Medication Instructions Recorded Confirmed Last Taken Type fluticasone propionate 50 1 spray intranasal BID 09/01/20 10/11/21 Unknown History mcg/actuation nasal spray,suspension loratadine 10 mg tablet 10 mg PO DAILY 09/01/20 10/11/21 09/01/20 History losartan 100 mg tablet 100 mg PO DAILY 09/01/20 10/11/21 09/01/20 History cholecalciferol (vitamin D3) 25 25 mcg PO DAILY 09/09/20 10/11/21 Unknown History mcg (1,000 unit) capsule meclizine 25 mg tablet 25 mg PO TID PRN Vertigo 10/11/21 10/11/21 Unknown History Exam Height,Weight and Vital Signs: Height 5 ft 3 in Weight 74.3 kg Vital Signs Temp Pulse Resp BP Pulse Ox O2 Del Method 10/31/21 07:35 96.5 F L 64 16 130/75 96 Room Air Airway Mallampati Class: II TM Dist: >3cm Neck ROM: Full Heart: RRR Lungs: CTAB Assessment and Plan Final Anesthetic Review NPO: Yes ASA Class: III Final Preanesthetic Review: No Changes in Pt Med Stat, Meds/Allgs Chart Reviewed, Consent Obtained/Reviewed and Anes Risks/Benef Reviewed Patient Risk: Intermediate Procedure Risk: Low Assessment/Block/Sedation in SS: Assess/Block/Sedation-SS Anesthetic Plan Anesthetic Plan: MAC: Disposition: Standard PACU
[2021-10-31 07:35] VITALS: BP 130/75; PULSE 64; RESP 16; TEMP 35.8; O2SAT 96
[2021-10-31] MEDS: Tetracaine HCl/PF 0.5% Oph Sol 4 ML DROPS 1 DROP EYE-LEFT (07:41)
[2021-10-31] MEDS: Lactated Ringers 500 ML 50 ML IV (07:41)
[2021-10-31] MEDS: Cyclopentolate 1 % Ophth Sol 2 ML DRPBTL 1 DROP EYE-LEFT ×3 (07:42→07:52)
[2021-10-31] MEDS: Tropicamide 1 % Ophth Sol 3 ML BTL 1 DROP EYE-LEFT ×3 (07:42→07:51)
[2021-10-31] MEDS: Phenylephrine HCL 2.5% Oph SoL 2 ML BOTTLE 1 DROP EYE-LEFT ×3 (07:45→07:54)
--- NOTE | 2021-10-31 08:47 | HO.PNOPHT ---
Ophthalmology Procedure Procedure Date of Service: 10/31/21 Ophthalmology Viscoelastic: Healdestiny [place] Dual Pack Pro Ophthalmology Lenses: TECMARGARITA [id number] (16) Procedure Notes: PREOPERATIVE DIAGNOSIS: Decreased visual acuity left eye secondary to cataract POSTOPERATIVE DIAGNOSIS: Same PROCEDURE: Left cataract extraction with intraocular lens insertion SURGEON: Ryan Johnson M.D. ANESTHESIA: Topical/MAC ESTIMATED BLOOD LOSS: None COMPLICATIONS: None After obtaining informed consent, the patient was brought to the operation room suite and placed in the supine position. After adequate sedation per anesthesia, topical drops of Tetracaine were given to the left eye. The eye was then prepped and draped in the usual sterile fashion. The operating room microscope was then positioned over the operative eye and a lid speculum placed. A paracentesis was created. Viscoelastic was then instilled into the anterior chamber. A three plane incision was then created temporally, utilizing a 2.85 mm keratome. Capsulotomy forceps were then utilized to create a circular tear capsulotomy. Hydrodissection and hydrodelineation were carried out until adequate mobilization of the nucleus occurred. Phacoemulsification was then utilized to remove the dense central nucleus followed by removal of the cortical material utilizing the automated aspiration irrigation unit. Viscoat elastic was instilled into the posterior capsular bag followed by placement of a posterior chamber intraocular lens without difficulty. The residual Viscoat elastic was then removed utilizing the automated IA machine. The wound was check and found to be watertight. The patient tolerated the procedure well and the lid speculum was removed. Intracameral injection of Vigamox 0.1 mL followed by a subtenon injection of Kenalog-40 0.2 mL were administered. The patient will be seen in the a.m.
[2021-10-31 09:12] VITALS: BP 124/67; PULSE 59; RESP 16; TEMP 36.3; O2SAT 98
== END 2021-10-31 09:27 | disposition home or self-care (01) ==
PROVIDERS: PCP Internal Medicine; Visit Provider Ophthalmology
PROC: (CPT 66985; principal; 2021-10-31 08:50)
DX: H25.12 Age-related nuclear cataract, left eye (principal); H52.4 Presbyopia; H47.011 Ischemic optic neuropathy, right eye; E11.9 Type 2 diabetes mellitus without complications; F41.1 Generalized anxiety disorder; Z79.899 Other long term (current) drug therapy
CPT/HCPCS: 66984; J2250; J3010; J3300; V2632

== ENCOUNTER 2023-06-20 14:04 | Outpatient (AMB) | payer MEDICARE, BC, SELFPAY ==
--- NOTE | 2023-06-20 14:25 | HO.NEPHOV_ITS ---
HPI HPI Comments History of Present Illness Details I had the pleasure of seeing Pricila with a history of proteinuria. She has been treated with losartan. Her blood pressure has been at goal. Her proteinuria is now undetectable. She was evaluated in [facility] to rule out NMO. She does not have any orthostatic symptoms, hematuria, dysuria, pedal edema, nausea, vomiting, chest pain, shortness of breath, paroxysmal nocturnal dyspnea, orthopnea. She does not take any nonsteroidal anti-inflammatories and tries to maintain good hydration. There were no new active complaints at the time of this office visit. [facility] Medical History Abdominal pain Anxiety BPPV (benign paroxysmal positional vertigo) Cervical stenosis of spine COVID-19 vaccine series completed Elevated cholesterol Fatty liver Fibromyalgia HTN (hypertension) with goal to be determined Optic neuritis Osteopenia Peripheral neuropathy Post-operative nausea and vomiting Rectal pressure Skin cancer Type 2 diabetes mellitus Surgical History History of lobectomy of thyroid Hx of cystoscopy History of laryngoscopy Hx of laparoscopy Hx of cholecystectomy Social History Household Members: Spouse Housing: House Are you a primary acute care nurse to a significant other at home: No Do you presently have visiting nurse or other home services: No Alcohol intake: current Alcohol intake frequency: holidays/special occasions only Alcohol type: beer, wine and hard liquor Patient Tobacco Use Status: Never used Tobacco Tobacco use type: Cigar Vital Signs 06/20/23 14:26 Height 5 ft 3.5 in Weight 152 lb 4 oz BMI 26.5 BP 110/70 Blood Pressure Location Lt brachial Position Sitting Pulse 91 Pulse Source Pulse Oximeter Pulse Oximetry (%) 96 Oxygen Delivery Method Room Air Physical Exam Vital Signs: Last Vital Signs Pulse 91 06/20/23 14:26 BP 110/70 06/20/23 14:26 Pulse Ox 96 06/20/23 14:26 Oxygen Delivery Method Room Air 06/20/23 14:26 BMI result Body Mass Index 26.5 Const General: comfortable and no acute distress Orientation/consciousness: patient oriented x3 HEENT Head: Yes normocephalic Mouth: Normal oral and palatal mucosa present Eyes EOM: EOMs intact bilaterally Neck Neck: Yes supple Resp Auscultation: clear to auscultation bilaterally Cardio Jugular venous distension: no JVD Rate: regular rate GI Palpation (GI): Soft to palpation Auscultation: normal bowel sounds General: Yes no CVA tenderness Back/Spine/Pelvis Back: no CVA tenderness Skin General skin exam: no rashes or lesions noted Neuro General: patient oriented x3 and moves all extremities Extrem General: Yes no pedal edema Assessment & Plan Assessment & Plan (1) Hypertension: Code(s): I10 - Essential (primary) hypertension Qualifiers: Hypertension type: primary hypertension Qualified Code(s): I10 - Essential (primary) hypertension (2) Proteinuria, unspecified: Code(s): R80.9 - Proteinuria, unspecified Qualifiers: Proteinuria type: other Qualified Code(s): R80.8 - Other proteinuria Plan Pricila has had intermittent microscopic hematuria. She had undergone imaging studies as well as cystoscopy. She has history of minimal proteinuria which has improved on losartan. Her last urine test did not show any proteinuria at all. Her blood pressure has been at goal. She is tolerating angiotensin receptor nadine. She avoids nonsteroidal anti-inflammatories. She maintains good hydration. Her renal functions are normal. I did not make any medication changes today. Her losartan was refilled. Follow-up blood work ordered. Answered all questions. Medications: New losartan 100 mg PO DAILY 90 tabs 4RF Coding Level of Care Code Est Pt Level 3 (78584) Diagnoses Primary hypertension I10 Hypertension type: primary hypertension Other proteinuria R80.8 Proteinuria type: other Results Reviewed Nephrology Results: Hgb 14.0 g/dl (12.0-16.0) 09/01/20 WBC 6.9 X10*3/uL (4.8-10.8) 09/01/20 Plt Count 295 X10*3/uL (160-400) 09/01/20 Sodium 139 mmol/L (135-145) 09/01/20 Potassium 4.3 mmol/L (3.3-5.1) 09/01/20 Chloride 106 mmol/L (96-108) 09/01/20 Carbon Dioxide 22 mmol/L (22-29) 09/01/20 BUN 10 mg/dL (9-16) 09/01/20 Creatinine 0.70 mg/dL (0.5-1.4) 09/01/20 Calcium 9.6 mg/dL (8.4-10.2) 09/01/20 Urine Protein NEG MG/DL (NEG-TRACE) 09/01/20
[2023-06-20 14:26] VITALS: BP 110/70; PULSE 91; O2SAT 96; BMI 26.5
== END 2023-06-20 14:50 | disposition home or self-care (01) ==
PROVIDERS: PCP Family Medicine; Visit Provider Internal Medicine Nephrology
DX: I10 Essential (primary) hypertension (principal); R80.8 Other proteinuria
CPT/HCPCS: 99213

== ENCOUNTER → 2023-06-20 14:04 | Outpatient (BNVA) | payer MEDICARE, BC, SELFPAY | PROVIDERS: PCP Family Medicine; Visit Provider Internal Medicine Nephrology | DX: I10 Essential (primary) hypertension (principal); R80.8 Other proteinuria; R31.29 Other microscopic hematuria | CPT/HCPCS: 99212 ==

== ENCOUNTER 2023-12-19 13:37 | Outpatient (AMB) | payer MEDICARE, BC, SELFPAY ==
--- NOTE | 2023-12-19 13:45 | HO.NEPHOV_ITS ---
Vital Signs 12/19/23 13:46 Height 5 ft 3.5 in Weight 150 lb 6 oz BMI 26.2 BP 122/70 Blood Pressure Location Rt brachial Position Sitting Pulse 83 Pulse Source Pulse Oximeter Pulse Oximetry (%) 96 Oxygen Delivery Method Room Air Intake Visit Reasons: Hypertension/ 6 MO FU- LVM Braille Duplicating Machine Operator Required: No Accompanied by: Self / Same As Patient Allergies heparin Allergy (Intermediate, Verified 12/19/23 13:48) Abdominal Pain colestipol [From Colestid] Adverse Reaction (Intermediate, Verified 12/19/23 13:48) muscle weakness erythromycin base Adverse Reaction (Intermediate, Verified 12/19/23 13:48) Nausea ezetimibe [From Zetia] Adverse Reaction (Intermediate, Verified 12/19/23 13:48) myalgias Jgfnrbx-DAQ-YvL Reductase Inhibitor Adverse Reaction (Intermediate, Verified 12/19/23 13:48) myalgias HPI Comments Details: I had the pleasure of seeing Pricila with a history of proteinuria. She has been treated with losartan. Her blood pressure has been at goal. Her proteinuria is now undetectable. She has been a diabetic and she stopped taking Metformin. Her A1c has gone up. She was evaluated in [facility] to rule out NMO. She does not have any orthostatic symptoms, hematuria, dysuria, pedal edema, nausea, vomiting, chest pain, shortness of breath, paroxysmal nocturnal dyspnea, orthopnea. She does not take any nonsteroidal anti-inflammatories and tries to maintain good hydration. There were no new active complaints at the time of this office visit. [facility] Medical History Abdominal pain Anxiety BPPV (benign paroxysmal positional vertigo) Cervical stenosis of spine COVID-19 vaccine series completed Elevated cholesterol Fatty liver Fibromyalgia HTN (hypertension) with goal to be determined Optic neuritis Osteopenia Peripheral neuropathy Post-operative nausea and vomiting Rectal pressure Skin cancer Type 2 diabetes mellitus Surgical History History of lobectomy of thyroid Hx of cystoscopy History of laryngoscopy Hx of laparoscopy Hx of cholecystectomy Social History Household Members: Spouse Housing: House Are you a primary resident care provider to a significant other at home: No Do you presently have visiting nurse or other home services: No Alcohol intake: current Alcohol intake frequency: holidays/special occasions only Alcohol type: beer, wine and hard liquor Patient Tobacco Use Status: Never used Tobacco Tobacco use type: Cigar Review of Systems Const All systems reviewed & are unremarkable except as noted in HPI and below Physical Exam Vital Signs: Last Vital Signs Pulse 83 12/19/23 13:46 BP 122/70 12/19/23 13:46 Pulse Ox 96 12/19/23 13:46 Oxygen Delivery Method Room Air 12/19/23 13:46 BMI result Body Mass Index 26.2 Const General: comfortable and no acute distress Orientation/consciousness: patient oriented x3 HEENT Head: Yes normocephalic Mouth: Normal oral and palatal mucosa present Eyes EOM: EOMs intact bilaterally Neck Neck: Yes supple Resp Auscultation: clear to auscultation bilaterally Cardio Jugular venous distension: no JVD Rate: regular rate GI Palpation (GI): Soft to palpation Auscultation: normal bowel sounds General: Yes no CVA tenderness Back/Spine/Pelvis Back: no CVA tenderness Skin General skin exam: no rashes or lesions noted Neuro General: patient oriented x3 and moves all extremities Extrem General: Yes no pedal edema Assessment & Plan Assessment & Plan (1) Hypertension: Code(s): I10 - Essential (primary) hypertension Category: Medical Qualifiers: Hypertension type: primary hypertension Qualified Code(s): I10 - Essential (primary) hypertension Plan Pricila has had intermittent microscopic hematuria. She had undergone imaging studies as well as cystoscopy. She has history of minimal proteinuria which has improved on losartan. Her last urine test did not show any proteinuria at all. Her blood pressure has been at goal. She is tolerating angiotensin receptor nadine. She avoids nonsteroidal anti-inflammatories. She maintains good hydration. Her renal functions are normal. I did not make any medication changes today. She needs anti diabetic medications. Follow-up blood work ordered. Answered all questions Orders: Orders Blood Urea Nitrogen 12/19/23 I10 - Essential (primary) hypertension Electrolytes 12/19/23 I10 - Essential (primary) hypertension Creatinine 12/19/23 I10 - Essential (primary) hypertension Protein Creatinine Ratio, Ur 12/19/23 I10 - Essential (primary) hypertension Coding Level of Care Code Est Pt Level 4 (58048) Diagnoses Primary hypertension I10 Hypertension type: primary hypertension
[2023-12-19 13:46] VITALS: BP 122/70; PULSE 83; O2SAT 96; BMI 26.2
== END 2023-12-19 14:13 | disposition home or self-care (01) ==
PROVIDERS: PCP Family Medicine; Visit Provider Internal Medicine Nephrology
DX: I10 Essential (primary) hypertension (principal)
CPT/HCPCS: 99214

== ENCOUNTER → 2023-12-19 13:37 | Outpatient (BNVA) | payer MEDICARE, BC, SELFPAY | PROVIDERS: PCP Family Medicine; Visit Provider Internal Medicine Nephrology | DX: I10 Essential (primary) hypertension (principal); E11.9 Type 2 diabetes mellitus without complications | CPT/HCPCS: 99212 ==

== ENCOUNTER 2024-06-18 10:57 | Outpatient (AMB) | payer MEDICARE, BC, SELFPAY ==
--- NOTE | 2024-06-18 11:23 | HO.NEPHOV ---
Vital Signs 06/18/24 11:25 Height 5 ft 3.5 in Weight 146 lb 6 oz BMI 25.5 BP 110/70 Blood Pressure Location Lt brachial Position Sitting Pulse 93 Pulse Source Pulse Oximeter Pulse Oximetry (%) 97 Oxygen Delivery Method Room Air Intake Visit Reasons: Hypertension-LVM Milling Machine Operator Required: No Accompanied by: Self / Same As Patient Allergies heparin Allergy (Intermediate, Verified 06/18/24 11:) Abdominal Pain colestipol [From Colestid] Adverse Reaction (Intermediate, Verified 06/18/24 11:) muscle weakness erythromycin base Adverse Reaction (Intermediate, Verified 06/18/24 11:25) Nausea ezetimibe [From Zetia] Adverse Reaction (Intermediate, Verified 06/18/24 11:25) myalgias Nnrogjj-XHH-DlV Reductase Inhibitor Adverse Reaction (Intermediate, Verified 06/18/24 11:) myalgias HPI Comments Details: Pricila was seen for F/U of HTN with a history of proteinuria. She has been treated with losartan. Her blood pressure has been at goal. Her proteinuria is now undetectable. She has been a diabetic and is taking Metformin. In the past she was evaluated in [facility] to rule out NMO. She does not have any orthostatic symptoms, hematuria, dysuria, pedal edema, nausea, vomiting, chest pain, shortness of breath, paroxysmal nocturnal dyspnea, orthopnea. She does not take any nonsteroidal anti-inflammatories and tries to maintain good hydration. There were no new active complaints at the time of this office visit. [facility] Medical History Abdominal pain Anxiety BPPV (benign paroxysmal positional vertigo) Cervical stenosis of spine COVID-19 vaccine series completed Elevated cholesterol Fatty liver Fibromyalgia HTN (hypertension) with goal to be determined Optic neuritis Osteopenia Peripheral neuropathy Post-operative nausea and vomiting Rectal pressure Skin cancer Type 2 diabetes mellitus Surgical History History of lobectomy of thyroid Hx of cystoscopy History of laryngoscopy Hx of laparoscopy Hx of cholecystectomy Social History Household Members: Spouse Housing: House Are you a primary career development facilitator to a significant other at home: No Do you presently have visiting nurse or other home services: No Alcohol intake: current Alcohol intake frequency: holidays/special occasions only Alcohol type: beer, wine and hard liquor Patient Tobacco Use Status: Never used Tobacco Tobacco use type: Cigar Review of Systems Const All systems reviewed & are unremarkable except as noted in HPI and below Physical Exam Vital Signs: Last Vital Signs Pulse 93 06/18/24 11:25 BP 110/70 06/18/24 11:25 Pulse Ox 97 06/18/24 11:25 Oxygen Delivery Method Room Air 06/18/24 11:25 BMI result Body Mass Index 25.5 Const General: comfortable and no acute distress Orientation/consciousness: patient oriented x3 HEENT Head: Yes normocephalic Mouth: Normal oral and palatal mucosa present Eyes EOM: EOMs intact bilaterally Neck Neck: Yes supple Resp Auscultation: clear to auscultation bilaterally Cardio Jugular venous distension: no JVD Rate: regular rate GI Palpation (GI): Soft to palpation Auscultation: normal bowel sounds Skin General skin exam: no rashes or lesions noted Neuro General: patient oriented x3 and moves all extremities Extrem General: Yes no pedal edema Results Reviewed Nephrology Results: Hgb 14.0 g/dl (12.0-16.0) 09/01/20 WBC 6.9 X10*3/uL (4.8-10.8) 09/01/20 Plt Count 295 X10*3/uL (160-400) 09/01/20 Sodium 139 mmol/L (135-145) 09/01/20 Potassium 4.3 mmol/L (3.3-5.1) 09/01/20 Chloride 106 mmol/L (96-108) 09/01/20 Carbon Dioxide 22 mmol/L (22-29) 09/01/20 BUN 10 mg/dL (9-16) 09/01/20 Creatinine 0.70 mg/dL (0.5-1.4) 09/01/20 Calcium 9.6 mg/dL (8.4-10.2) 09/01/20 Urine Protein NEG MG/DL (NEG-TRACE) 09/01/20 Assessment & Plan Assessment & Plan (1) Hypertension: Code(s): I10 - Essential (primary) hypertension Category: Medical Qualifiers: Hypertension type: primary hypertension Qualified Code(s): I10 - Essential (primary) hypertension Plan Pricila has had intermittent microscopic hematuria. She had undergone imaging studies as well as cystoscopy. She has history of minimal proteinuria which has improved on losartan. Her last urine test did not show any proteinuria at all. Her blood pressure has been at goal. She is tolerating angiotensin receptor nadine. She avoids nonsteroidal anti-inflammatories. She maintains good hydration. Her renal functions are normal. Her BP is at goal. I did not make any medication changes today. Answered all questions Orders: Orders Blood Urea Nitrogen 6 Months I10 - Essential (primary) hypertension Calcium 6 Months I10 - Essential (primary) hypertension UA and rflx microscopic 6 Months I10 - Essential (primary) hypertension Creatinine 6 Months I10 - Essential (primary) hypertension Electrolytes 6 Months I10 - Essential (primary) hypertension Protein Creatinine Ratio, Ur 6 Months I10 - Essential (primary) hypertension Coding Level of Care Code Est Pt Level 4 (60155) Diagnoses Primary hypertension I10 Hypertension type: primary hypertension
[2024-06-18 11:25] VITALS: BP 110/70; PULSE 93; O2SAT 97; BMI 25.5
--- OUTSIDE RECORDS SUMMARY | 2024-06-18 12:48 | XMS_ITS | Clinical Summary ---
Author Organization [facility] Address [address] [place] [address] Phone Care Team Providers Care Building Trades Teacher Name Role Phone Adarsh Ricks MD Primary Care Provider [phone] Allergies Active Allergy Reactions Criticality Noted Date Comments Atorvastatin Other (see comments) 03/15/2021 Colestipol Other (see comments) 03/15/2021 Colestipol Hcl 07/06/2021 Other reaction(s): muscle weakness pain Erythromycin Other (see comments) 03/15/2021 Ezetimibe 06/28/2022 achy Heparin 07/06/2021 Other reaction(s): stomach pain diarrhea vomiting Heparin (Porcine) Other (see comments) 03/15/20 Pravastatin Other (see comments) 03/15/2021 Medications aspirin (ST JASON) 81 MG EC tablet Take 1 tablet by mouth 1 (one) time each day Active cholecalciferol (VITAMIN D-3) 25 MCG (1000 UT) capsule Take 1 capsule by mouth 1 (one) time each day Active loratadine (CLARITIN) 10 MG tablet Take 1 tablet by mouth 1 (one) time each day 06/09/2021 Active fluticasone (FLONASE) 50 MCG/ACT nasal spray See Instructions , USE 1 SPRAY IN EACH NOSTRIL TWICE A DAY, # 16 mL, 5 Refills, 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 06/09 Overview (07/06/2021): advised pre dabetic;increased risk diabetes Microscopic hematuria 07/06/2021 Overview (07/06/2021): Negative workup no mass was a splenuleneg cysto,neg ct urogram;left renal mass;being addressed by urologyurology addressingRefer to urology Vitamin D deficiency 07/06/2021 Chronic low back pain 06/23/2021 Traumatic injury 06/23/2021 Dysuria 03/15/2021 Proteinuria 03/15/2021 Hyperkalemia 06/21/2020 Resolved Problems Problem Noted Date Diagnosed Date Resolved Date H/O: postmenopausal bleeding 07/06/2021 07/06/2021 Anxiety 07/06/2021 07/06/2021 Benign paroxysmal positional vertigo 07/06/2021 07/06/2021 Fibromyositis 07/06/2021 07/06/2021 Overview (07/06/2021): per rheumatology Ganglion cyst 07/06/2021 07/06/2021 Hyperlipidemia 07/06/2021 07/06/2021 Overview (07/06/2021): intiolerant statin,colestidcomprehensive low cholesterol diet Ineffective health maintenance 07/06/2021 07/06/2021 Overview (07/06/2021): advised again;cancer scfreeningstill refusedcolonoscopy;referred mukltiple times aware CANCER SCREENING Multiple joint pain 07/06/2021 07/07/19 Overview (07/06/2021): possible fibromyalgia per rheumatology Optic neuritis 07/06/2021 07/06/2021 Overview (07/06/2021): neg fta-abs lyme cbc tiffanie aceper DR Malina leo idiopathic;had MRI<labs Osteopenia 07/06/2021 07/06/2021 Overview (07/06/2021): frax 7.7/0.5frax 6.8/0/3 Spinal stenosis of cervical region 07/06/2021 07/06/2021 Steatosis of liver 07/06/2021 Overview (07/06/2021): normal spepNegative hep A and B.normal iron;feritinneg hep cworkup 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/06/2021 07/07/19 Overview (07/06/2021): chronic 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 0 07/06/2021 Overview (07/06/2021): Records obtained she had a right hemithyroidectomy for follicular adenoma no carcinomapatient says not cancercancer Uterine leiomyoma 07/06/2021 07/06/2021 Backache 03/15/2021 07/06/2021 Type 2 diabetes mellitus 01/27/2021 History of cholecystectomy 08/18/2014 0 07/06/2021 Immunizations Name Administration Dates Next Due DTaP 05/24/2011 Hepatitis A 05/07/2014,10/28/2013 Hepatitis B 05/07/2014,11/28/2013,10/28/2013 Influenza Whole 12/27/2019, 9,02/01/2016,12/31/2009 ,01/12/2009,02/12/2008 Moderna SARS-COV-2 02/24/2021,07/30/2020, 021 Pneumococcal Conjugate 13-Valent 02/18/2018 Pneumococcal Polysaccharide 01/30/2022, 3 Td, Unspecified 01/30/2022,03/09/2002 Family History Medical History Relation Comments Diabetes Father Heart disease Father Hypertension Mother Relation Status Comments Father Mother Alive Social History Tobacco Use Types Packs/Day Years Used Date Smoking Tobacco: Smoker, Current Status Unknown Smokeless Tobacco: Never Tobacco Cessation:Ready to Q uit: Not Asked; Counseling Given: Not Answered Alcohol Use Standard Drinks/Week Comments Yes 0 (1 standard drink = 0.6 oz pure alcohol) Alcoholic Drinks/day: Occasional social drink Comments Unknown Sex and Gender Information Value Date Recorded Sex Assigned at Not on file Legal Sex Female 4:43 PM EST Gender Identity Not on file Sexual Orientation Not on file Last Filed Vital Signs Vital Sign Reading Time Taken Comments Blood Pressure 130/80 06/28/2022 4:14 PM EDT Pulse 81 06/28/2022 4:14 PM EDT Temperature - - Respiratory Rate - - Oxygen Saturation - - Inhaled Oxygen Concentration - - Weight 72.1 kg (159 lb) 06/28/2022 4:14 PM EDT Height 165.1 cm (5' 5 ) 08/13/2019 12:00 PM EDT Body Mass Index 26.46 08/13/2019 12:00 PM EDT Plan of Treatment Health Maintenance Due Date Last Done Comments Breast Cancer Screening 1950 Colorectal Cancer Screening: Annual FOBT 2001 Colorectal Cancer Screening: Colonoscopy 2001 Colorectal Cancer Screening: Sigmoidoscopy 2001 Diabetes: Hemoglobin A1C 04/06/2021 Diabetes: Ophthalmology Exam 04/06/2021 Diabetes: Pedal Pulse Checked 04/06/2021 Diabetes: Sensory Foot Exam 04/06/2021 Diabetes: Visual Foot Exam 04/06/2021 Influenza Vaccine (#1) 2023 , 01/09/2019, 02/01/2016, Additional history exists Hepatitis B Vaccine Aged Out 05/07/2014, 11/28/2013, 10/28/2013 No longer eligible based on patient's age to complete this topic Pneumococcal Vaccine: 65+ Years Completed 01/30/2022, 02/18/2018, 07/02/2012 Insurance MEDICARE [facility] MEDICARE [facility] Care Teams Building Trades Teacher Relationship Specialty Start Date End Date Adarsh Ricks MD [address] [facility] [place] [address] PCP - General Family Medicine 06/28/22
== END 2024-06-18 11:58 | disposition home or self-care (01) ==
LOC: HO.HKA 10:57
PROVIDERS: PCP Family Medicine; Visit Provider Internal Medicine Nephrology
DX: I10 Essential (primary) hypertension (principal)
CPT/HCPCS: 99214

== ENCOUNTER → 2024-06-18 10:57 | Outpatient (BNVA) | payer MEDICARE, BC, SELFPAY | PROVIDERS: PCP Family Medicine; Visit Provider Internal Medicine Nephrology | DX: I10 Essential (primary) hypertension (principal) | CPT/HCPCS: 99212 ==

== ENCOUNTER 2024-12-09 13:11 | Outpatient (REF) | payer MEDICARE, BC, SELFPAY ==
--- OUTSIDE RECORDS SUMMARY | 2024-12-09 14:30 | XMS_ITS | Clinical Summary ---
Author Organization [facility] Address [address] [facility] [address] [place] [address] Phone Care Team Providers Care Structural Layout Worker Name Role Phone Melchor Mejia MD Primary Care Provide r Allergies No known active allergies Medications losartan (COZAAR) 100 MG tablet Take 100 mg by mouth daily. Active Social History Tobacco Use Types Packs/Day Years Used Date Smoking Tobacco: Some Days Alcohol Use Standard Drinks/Week Comments Yes 0 (1 standard drink = 0.6 oz pur e alcohol) Education Answer Date Recorded Are you interested in more education? Not on helene e 08/04/2022 Are you concerned about learning? Not on file 08/04/2022 No 08/04/2022 No 08/04/2022 Digital Access Answer Date Recorded No 09/04/2022 No 09/04/2022 Reliable internet access at home? Not on file 09/04/2022 Device with a working camera? Not on file Comments Unknown Sex and Gender Information Value Date Recorded Sex Assigned at Not on file Legal Sex Female 11:10 AM EDT Gender Identity Not on file Sexual Orientation Not on file Last Filed Vital Signs Vital Sign Reading Time Taken Comments Blood Pressure - - Pulse - - Temperature - - Respiratory Rate - - Oxygen Saturation - - Inhaled Oxygen Concentration - - Weight 68 kg (149 lb 14.6 oz) 11/28/2015 5:04 PM EDT Height - - Body Mass Index - - Plan of Treatment Health Maintenance Due Date Last Done Comments Adult Td,Tdap Booster 1950 CREATININE LEVEL 1952 LIPID PANEL 1952 POTASSIUM LEVEL 1952 DEPRESSION SCREENING 1964 SMOKING Hx and SMOKELESS TOBACCO SCREENING 1965 HEPATITIS C SCREENING 1970 PNEUMOCOCCAL VACCINES (50+ years) (1 of 2 - PCV) 1971 MAMMOGRAM 1992 COLOGUARD 1997 COLONOSCOPY 1997 COLORECTAL CANCER SCREENING 1997 FIT TEST 1997 FOBT 1997 SIGMOIDOSCOPY 1997 VIRTUAL COLONOSCOPY 1997 ZOSTER VACCINES (1 of 2) 2002 OSTEOPOROSIS SCREENING INITI AL (ONE-TIME) 2017 COVID-19 VACCINE (2 - 2023-2 5 season) 2023 07/02/2020 INFLUENZA VACCINE (#1) 2024 0, 01/17/2018 RSV VACCINE (1 - 1-dose 75+ series) 2027 HEPATITIS A VACCINES Aged Out No long er eligible based on patient's age to complete this topic HIB VACCINES Aged Out No longer eligi ble based on patient's age to complete this topic MENINGOCOCCAL VACCINES (ACWY) Aged Out No longer eligible based on patient's age to complete this topic MENINGOCOCCAL VACCINES (B) Aged Out N o longer eligible based on patient's age to complete this topic Medical Devices Not on file Insurance [facility] [employer] [facility] Care Teams Structural Layout Worker Relationship Specialty Start Date End Date Melchor Mejia MD PCP - General Internal Medicine 09/30/15 Additional Source Comments The information contained in this document represents components of the legal health record. It is not the complete legal health record.[facility]
--- OUTSIDE RECORDS SUMMARY | 2024-12-09 14:30 | XMS_ITS | Clinical Summary ---
Author Organization [facility] Address [address] [place] [address] Phone Care Team Providers Care Animal Maintenance Supervisor Name Role Phone Adarsh Ricks MD Primary Care Provider [phone]- [phone] Allergies Active Allergy Reactions Criticality Noted Date [...] A DAY, # 16 mL, 5 Refills, [facility] , 30, USE 1 SPRAY IN [...] History of cholecystectomy 08/18/2014 0 07/06/2021 Immunizations Immunization Administration Dates Next Due DTaP 05/24/2011 Hepatitis [...] Visual Foot Exam 04/06/2021 Influenza Vaccine (#1) 2024 , 01/09/2019, 02/01/2016, Additional history exists Hepatitis B Vaccine Aged Out 05/07/2014, 11/28/2013, 10/28/2013 No longer eligible based on patient's age to complete this topic Pneumococcal Vaccine: 50+ Years Completed 01/30/2022, 02/18/2018, 07/02/2012 Pneumococcal Vaccine: Peds (0 to 5 Years) and At-Risk Patients (6 to 49 Years) Discontinued 01/30/2022, 02/18/2018, 07/02/2012 Insurance Medicare [facility] Care Teams Animal Maintenance Supervisor Relationship Specialty Start Date End Date Adarsh Ricks MD [facility] [address] [place] [id number] PCP - General Family Medicine 06/28/22
--- OUTSIDE RECORDS SUMMARY | 2024-12-09 14:30 | XMS_ITS | Encounter Summary ---
Author Organization [facility] Address [address] [facility] [address] [place] [phone] Phone Care Team Providers Care Wool Puller Name Role Phone Melchor Mejia MD Primary Care Provide r Encounter Details Date Type Department Care Team (Late st Contact Info) Description 11/28/2015 Transcribe Orders [facility] - MRI, [address] [address] Omid Yin MD [address] [place] [id number] [email or web address] Social History Tobacco Use Types Packs/Day Years Used Date Smoking Tobacco: Never Assessed Comments Unknown Sex and Gender Information Value Date Recorded Sex Assigned at Not on file Legal Sex Female 11:10 AM EDT Gender Identity Not on file Sexual Orientation Not on file documented as of this encounter Plan of Treatment Not on file documented as of this encounter Visit Diagnoses Not on filedocumented in this encounter Care Teams Wool Puller Relationship Specialty Start Date End Date Melchor Mejia MD PCP - General Internal Medicine 09/30/15 documented as of this encounter Additional Source Comments The information contained in this document represents components of the legal health record. It is not the complete legal health record.[facility]
[2024-12-09 16:29] LABS: Anion Gap 13 (12-20); Blood Urea Nitrogen 20 mg/dL (9-16); Calcium 9.4 mg/dL (8.4-10.2); Carbon Dioxide 28 mmol/L (22-29); Chloride 103 mmol/L (96-108); Estimated Glomerular Filt Rate > 60; Potassium 4.3 mmol/L (3.3-5.1); Sodium 140 mmol/L (135-145)
[2024-12-09 16:31] LABS: Appearance Urine Turbid; Glucose Urine UA Negative (Negative); PH 5.5 (5.0-9.0); Specific Gravity - Urine 1.020 (1.005-1.025); UMIC TRIGGER UA YES
[2024-12-09 17:57] LABS: Protein/Creatinine Ratio, Ur 0.06 (<0.2); Total Protein Urine Random 8 mg/dL (<12)
== END 2024-12-09 13:12 | disposition home or self-care (01) ==
LOC: HO.HMGCLDS 13:11
PROVIDERS: PCP Family Medicine; Visit Provider Internal Medicine Nephrology
DX: I10 Essential (primary) hypertension (principal)
CPT/HCPCS: 36415; 80051; 81001; 82310; 82565; 82570; 84156; 84520

== ENCOUNTER 2024-12-10 10:23 | Outpatient (AMB) | payer MEDICARE, BC, SELFPAY ==
--- NOTE | 2024-12-10 10:51 | HO.NEPHOV_ITS ---
Vital Signs 12/10/24 10:52 Height 5 ft 3.5 in Weight 146 lb 2 oz BMI 25.5 BP 122/70 Blood Pressure Location Lt brachial Position Sitting Pulse 75 Pulse Source Pulse Oximeter Pulse Oximetry (%) 97 Oxygen Delivery Method Room Air Intake Visit Reasons: 6 MO FU-LV Junior Mechanical Engineer Required: No Accompanied by: Self / Same As Patient Allergies heparin Allergy (Intermediate, Verified 12/10/24 10:52) Abdominal Pain colestipol (From Colestid) Adverse Reaction (Intermediate, Verified 12/10/24 10:52) muscle weakness erythromycin base Adverse Reaction (Intermediate, Verified 12/10/24 10:52) Nausea ezetimibe (From Zetia) Adverse Reaction (Intermediate, Verified 12/10/24 10:52) myalgias Esphncw-ESG-FkF Reductase Inhibitor Adverse Reaction (Intermediate, Verified 12/10/24 10:52) myalgias HPI Comments Details: Pricila was seen for F/U of HTN with a history of proteinuria. She has been treated with losartan. Her blood pressure has been at goal. Her proteinuria is now undetectable. She has been a diabetic and is taking Metformin. In the past she was evaluated in [facility] to rule out NMO. She does not have any orthostatic symptoms, hematuria, dysuria, pedal edema, nausea, vomiting, chest pain, shortness of breath, paroxysmal nocturnal dyspnea, orthopn ea. She does not take any nonsteroidal anti-inflammatories and tries to maintain good hydration. There were no new active complaints at the time of this office visit. [facility] Medical History Abdominal pain Anxiety BPPV (benign paroxysmal positional vertigo) Cervical stenosis of spine COVID-19 vaccine series completed Elevated cholesterol Fatty liver Fibromyalgia HTN (hypertension) with goal to be determined Optic neuritis Osteopenia Peripheral neuropathy Post-operative nausea and vomiting Rectal pressure Skin cancer Type 2 diabetes mellitus Surgical History History of lobectomy of thyroid Hx of cystoscopy History of laryngoscopy Hx of laparoscopy Hx of cholecystectomy Social History Household Members: Spouse Housing: House Are you a primary career specialist to a significant other at home: No Do you presently have visiting nurse or other home services: No Alcohol intake: current Alcohol intake frequency: holidays/special occasions only Alcohol type: beer, wine and hard liquor Patient Tobacco Use Status: Never used Tobacco Tobacco use type: Cigar Review of Systems Const All systems reviewed & are unremarkable except as noted in HPI and below Physical Exam Vital Signs: Last Vital Signs Pulse 75 12/10/24 10:52 BP 122/70 12/10/24 10:52 Pulse Ox 97 12/10/24 10:52 Oxygen Delivery Method Room Air 12/10/24 10:52 BMI result Body Mass Index 25.5 Const General: comfortable and no acute distress Orientation/consciousness: patient oriented x3 HEENT Head: Yes normocephalic Mouth: Normal oral and palatal mucosa present Eyes EOM: EOMs intact bilaterally Neck Neck: Yes supple Resp Auscultation: clear to auscultation bilaterally Cardio Jugular venous distension: no JVD Rate: regular rate GI Palpation (GI): Soft to palpation Auscultation: normal bowel sounds General: Yes no CVA tenderness Back/Spine/Pelvis Back: no CVA tenderness Skin General skin exam: no rashes or lesions noted Neuro General: patient oriented x3 and moves all extremities Extrem General: Yes no pedal edema Results Reviewed Nephrology Results: Sodium, (135-145) 140 mmol/L 12/09/24 Potassium, (3.3-5.1) 4.3 mmol/L 12/09/24 Chloride, (96-108) 103 mmol/L 12/09/24 Carbon Dioxide, (22-29) 28 mmol/L 12/09/24 BUN, (9-16) 20 mg/dL H 12/09/24 Creatinine, (0.5-1.4) 0.75 mg/dL 12/09/24 Calcium, (8.4-10.2) 9.4 mg/dL 12/09/24 Urine Protein, (Neg-Trace) Negative mg/dL 12/09/24 Urine Creatinine 124.65 mg/dL 12/09/24 Protein/Creatinin Ratio, (<0.2) 0.06 12/09/24 Assessment & Plan Assessment & Plan (1) Hypertension: Code(s): I10 - Essential (primary) hypertension Category: Medical Qualifiers: Hypertension type: primary hypertension Qualified Code(s): I10 - Essential (primary) hypertension Plan Pricila has had intermittent microscopic hematuria. She had undergone imaging studies as well as cystoscopy. She has history of minimal proteinuria which has improved on losartan. Her last urine test did not show any proteinuria at all. Her blood pressure has been at goal. She is tolerating angiotensin receptor nadine. She avoids nonsteroidal anti-inflammatories. She maintains good hydration. Her renal functions are normal. Her BP is at goal. I did not make any medication changes today. Answered all questions Orders: Orders Electrolytes 6 Months I10 - Essential (primary) hypertension Calcium 6 Months I10 - Essential (primary) hypertension UA and rflx microscopic 6 Months I10 - Essential (primary) hypertension Protein Creatinine Ratio, Ur 6 Months I10 - Essential (primary) hypertension Creatinine 6 Months I10 - Essential (primary) hypertension Blood Urea Nitrogen 6 Months I10 - Essential (primary) hypertension Coding Level of Care Code Est Pt Level 4 (15880) Diagnoses Primary hypertension I10 Hypertension type: primary hypertension
[2024-12-10 10:52] VITALS: BP 122/70; PULSE 75; O2SAT 97; BMI 25.5
--- OUTSIDE RECORDS SUMMARY | 2024-12-10 12:11 | XMS_ITS | Encounter Summary ---
Author Organization [facility] Address [address] [facility] [address] [place] [address] Phone Care Team Providers Care Cutting And Splicing Supervisor Name Role Phone Melchor Mejia MD Primary Care Provide r Encounter Details Date Type Department Care Team (Late st Contact Info) Description 11/28/2015 Transcribe Orders [facility] Imaging - MRI, [address] [address] Omid Yin MD [address] [place] [id number] [email or web address] Social History Tobacco Use Types Packs/Day Years [...] on filedocumented in this encounter Care Teams Cutting And Splicing Supervisor Relationship Specialty Start Date End Date Melchor Mejia MD PCP - General Internal Medicine 09/30/15 documented as of this encounter Additional Source Comments The information contained in this document represents components of the legal health record. It is not the complete legal health record.[facility]
--- OUTSIDE RECORDS SUMMARY | 2024-12-10 12:11 | XMS_ITS | Clinical Summary ---
Author Organization [facility] Address [address] [facility] [address] [place] [address] Phone Care Team Providers Care Spindle Sander Name Role Phone Melchor Mejia MD Primary [...] topic Medical Devices Not on file Insurance [facility] [employer] [facility] Care Teams Spindle Sander Relationship Specialty Start Date End Date Melchor Mejia MD PCP - General Internal Medicine 09/30/15 Additional Source Comments The information contained in this document represents components of the legal health record. It is not the complete legal health record.[facility]
--- OUTSIDE RECORDS SUMMARY | 2024-12-10 12:11 | XMS_ITS | Clinical Summary ---
Author Organization [facility] Address [address] [place] [address] Phone Care Team Providers Care Sole Inker Name Role Phone Adarsh Ricks MD Primary Care Provider [phone] Allergies Active Allergy Reactions Criticality Noted Date [...] A DAY, # 16 mL, 5 Refills, [facility] , 30, USE 1 SPRAY IN [...] Years) Discontinued 01/30/2022, 02/18/2018, 07/02/2012 Insurance Medicare [facility] Care Teams Sole Inker Relationship Specialty Start Date End Date Adarsh Ricks MD [facility] [address] [place] [address] PCP - General Family Medicine 06/28/22
== END 2024-12-10 11:24 | disposition home or self-care (01) ==
LOC: HO.HKA 10:23
PROVIDERS: PCP Family Medicine; Visit Provider Internal Medicine Nephrology
DX: I10 Essential (primary) hypertension (principal)
CPT/HCPCS: 99214

== ENCOUNTER → 2024-12-10 10:23 | Outpatient (BNVA) | payer MEDICARE, BC, SELFPAY | PROVIDERS: PCP Family Medicine; Visit Provider Internal Medicine Nephrology | DX: I10 Essential (primary) hypertension (principal) | CPT/HCPCS: 99212 ==

== ENCOUNTER 2024-12-22 12:41 | Emergency (ER) | payer MEDICARE, BC, SELFPAY ==
--- NOTE | ~2024-12-22 | CT_ITS ---
EXAMINATION: CT HEAD WITHOUT CONTRAST CLINICAL INFORMATION: Fall COMPARISON: None available. TECHNIQUE: Contiguous axial imaging was performed from the skull base to vertex without intravenous administration of contrast. This CT examination was performed using dose optimization techniques as appropriate, variously including the following: *Automated exposure control *Adjustment of mA and/or kV according to patient size (this includes techniques or standardized protocols for targeted exams where dose is matched to indication/reason for exam; i.e. extremities or head) *Use of iterative reconstruction technique DLP: 594 mGY*cm FINDINGS: There is no acute ischemic change. There is no intracranial hemorrhage. There is no mass-effect or midline shift. Basal cisterns and ventricles are within normal limits for age/cerebral volume. Orbits are symmetrical and unremarkable. Paranasal sinuses and mastoid air cells are pneumatized. There are no bony abnormalities. CT/CT head/brain wo IV con IMPRESSION: No acute intracranial abnormality. Electronically signed by: Frederic Frausto MD 12/22/2024 03:56 PM EDT
--- NOTE | ~2024-12-22 | CT_ITS ---
EXAMINATION: CT MAXILLOFACIAL WITHOUT IV CONTRAST HISTORY: facial pain. TECHNIQUE: Serial 1.5 mm helically acquired images were obtained of the facial bones per standard departmental protocol. Coronal and sagittal reformatted images were also obtained and evaluated. One or more of the following techniques was used for dose reduction: Automated exposure control, adjustment of the mA and/or kV according to patient size, use of iterative reconstruction technique. DLP: 288 mGy-cm COMPARISON: There are no prior studies available for comparison. FINDINGS: There are fractures of the tips of the nasal bones. The facial bones are otherwise intact. No additional fractures are identified. The globes are intact. There is a polyp versus mucous retention cyst in the right maxillary sinus. The paranasal sinuses are otherwise clear. The visualized portion of the brain is unremarkable. No soft tissue abnormality is identified. CT/CT facial bones wo IV con IMPRESSION: Fractures of the tips of the nasal bones. Electronically signed by: Gabriele Aponte MD 12/22/2024 03:53 PM EDT
--- NOTE | ~2024-12-22 | CT_ITS ---
EXAMINATION: CT CERVICAL SPINE WITHOUT CONTRAST CLINICAL INFORMATION: Fall COMPARISON: None available. TECHNIQUE: Axial imaging was performed from the base of the skull through T2 without IV contrast. Coronal and sagittal reformatted images were generated from the original axial data set. ALARA: The examination used one or more of the following radiation dose reduction techniques: Automated exposure control, iterative reconstruction, and/or adjustment of mA and/or KV. DLP: 267 mGY*cm FINDINGS: Enlarged multinodular appearing left thyroid gland is evident. Multilevel degenerative changes are most advanced at C5-6 and C6 7 mm moderate loss of disc height, endplate osteophytes, and pyrophosphate deposition within the disc. There is also facet sclerosis and osteophytes which is more advanced in the upper cervical spine. No fractures are identified. CT/CT cervical spine wo IV con IMPRESSION: No acute fracture. Multilevel degenerative changes with degenerative disc disease and facet osteoarthritis. Multinodular thyroid gland goiter, follow-up ultrasound thyroid gland, nonemergent. Electronically signed by: Frederic Frausto MD 12/22/2024 03:59 PM EDT
[2024-12-22 12:55] VITALS: BP 137/82; BP 166/83; PULSE 83; PULSE 90; RESP 18; TEMP 36.7; O2SAT 97; O2SAT 98; BMI 25.3
--- NOTE | 2024-12-22 14:10 | ED.FALL ---
HPI - Fall General Chief Complaint: Fall Stated Complaint: TRIP/FALL ON SIDEWALK,FACE/HANDS/KNEES PAIN/INJURY Time Seen by Provider: 12/22/24 14:09 Source: patient, EMS and RN notes reviewed Mode of arrival: EMS Limitations: no limitations History of Present Illness ED Provider: Sissy Robertson PA-C HPI Narrative: This is a 74-year-old female, with a past medical history of hypertension, abdominal pain, and optic neuritis, who presents emergency department after a trip and fall which occurred outside of the [facility] this afternoon. Patient states that there was a broken curb where she accidentally tripped and fell face forward. She struck her head on the pavement. She reports that she did not lose consciousness. She is not on blood thinners. She does endorse a headache, no dizziness, lightheadedness, blurred vision. She reports bloody nose, and pain along her nasal bridge. She also reports that she lost a front 2, and her other front tooth feels very loose. Related Data Home Medications ?Medication ?Instructions ?Recorded ?Confirmed loratadine 10 mg tablet 10 mg PO DAILY 09/01/20 10/11/21 cholecalciferol (vitamin D3) 25 25 mcg PO DAILY 09/09/20 10/11/21 mcg (1,000 unit) capsule docusate sodium 100 mg capsule 100 mg PO DAILY 06/20/23 (Colace) famotidine 20 mg tablet 20 mg PO BID 06/20/23 montelukast 10 mg tablet 10 mg PO DAILY 06/20/23 metformin 500 mg tablet 500 mg PO DAILY 06/18/24 Previous Rx's ?Medication ?Instructions ?Recorded losartan 100 mg tablet 100 mg PO DAILY #90 tabs 12/10/24 Allergies Allergy/AdvReac Type Severity Reaction Status Date / Time heparin Allergy Intermediate Abdominal Verified 12/22/24 12:59 Pain colestipol (From Colestid) AdvReac Intermediate muscle Verified 12/22/24 12:59 weakness erythromycin base AdvReac Intermediate Nausea Verified 12/22/24 12:59 ezetimibe (From Zetia) AdvReac Intermediate myalgias Verified 12/22/24 12:59 Pfoievw-AEU-OnV Reductase AdvReac Intermediate myalgias Verified 12/22/24 12:59 Inhibitor Review of Systems Review of Systems: Yes all other systems are reviewed and are negative Constitutional: Constitutional: Reports as per HPI [facility] Past Medical History Medical History Abdominal pain Anxiety BPPV (benign paroxysmal positional vertigo) Cervical stenosis of spine COVID-19 vaccine series completed Elevated cholesterol Fatty liver Fibromyalgia HTN (hypertension) with goal to be determined Optic neuritis Osteopenia Peripheral neuropathy Post-operative nausea and vomiting Rectal pressure Skin cancer Type 2 diabetes mellitus Surgical History History of lobectomy of thyroid Hx of cystoscopy History of laryngoscopy Hx of laparoscopy Hx of cholecystectomy Social History Social History Household Members: Spouse Housing: House Are you a primary health care legal assistant to a significant other at home: No Do you presently have visiting nurse or other home services: No Alcohol intake: current Alcohol intake frequency: holidays/special occasions only Alcohol type: beer, wine and hard liquor Patient Tobacco Use Status: Never used Tobacco Tobacco use type: Cigar Physical Exam Vital Signs: Vital Signs: Last Vital Signs Temp 98.0 F 12/22/24 17:50 Pulse 72 12/22/24 17:50 Resp 18 12/22/24 17:50 BP 139/77 12/22/24 17:50 Pulse Ox 98 12/22/24 17:50 O2 Del Method Room Air 12/22/24 17:50 BMI result Body Mass Index 25.3 Const: General: cooperative, comfortable and no acute distress Orientation/consciousness: patient oriented x3 Limitations: no limitations HEENT: Other: Tenderness palpation along the nasal bridge, with mild ecchymosis noted. No septal hematoma noted. No active bleeding noted from bilateral nares Head: No Odell's sign Ears: TM's normal bilaterally (No hemotympanum) General nose exam: Normal external nose present Face and sinus: Yes normal facial exam Mouth: Normal oral and palatal mucosa present, oropharynx normal and moist mucous membranes Teeth image:  1. Tooth 8 a full route intact, present in saline bottle 2. Tooth 9., loose however appears to be intact Throat: Yes posterior oropharynx normal Eyes: General: appearance normal, both eyes and all related structures Eyelids: Yes eyelids normal Conjunctivae: conjunctivae normal Sclerae: sclerae normal Pupils: Equal, round and reactive pupils present EOM: EOMs intact bilaterally Neck: Other: No midline spine tenderness on examination Neck: Yes normal visual inspection, Yes full ROM and Yes no lymphadenopathy Lymphatic: no lymphadenopathy noted Chest: Chest palpation & inspection: normal inspection of the chest Resp: Effort & Inspection: normal respiratory effort and able to speak in complete sentences Auscultation: clear to auscultation bilaterally, no crackles, no rales, no rhonchi and no wheezes Cardio: Rate: regular rate Rhythm: regular rhythm Heart sounds: S1 normal heart sound present and S2 normal heart sound present GI: Other: Abdomen is soft, nontender, nondistended Inspection: Yes normal to inspection Back/Spine/Pelvis: Other: Right hip nontender, stable pelvis Skin: General skin exam: no rashes or lesions noted Trauma: no lacerations or abrasions Wounds: no wounds Neuro: General: patient oriented x3 and moves all extremities Cranial nerves: Yes CN's II-XII intact bilaterally and Yes Equal, round and reactive pupils present Cognition (Neuro): normal cognition Gait exam (Neuro): Normal gait present Motor exam (neuro): 5/5 motor strength present throughout and Pronator motor function not present Pupils: Normal pupillary reactivity/response: bilateral Extrem: General: Yes normal to inspection Right upper extremity: normal to inspection Left upper extremity: normal to inspection Right lower extremity: normal to inspection Left lower extremity: normal to inspection Medications Administered Discontinued Medications Generic Name Dose Route Start Last Admin Trade Name Freq PRN Reason Stop Dose Admin Bacitracin 1 appl 12/22/24 17:11 12/22/24 17:14 Bacitracin Oint 0.9 Gm Packet TOPICAL 12/22/24 17:12 1 appl ONCE ONE Administration Protocol Acetaminophen 1,000 mg in 100 mls @ 400 mls/hr 12/22/24 14:49 12/22/24 15:40 Ofirmev IV 12/22/24 15:03 Infused ONCE ONE Infusion Procedures Procedure Narrative Procedure Narrative: Procedure performed by Dr. Fernandez, I was fully present during this procedure. Tooth 8. That was present in saline bottle which was extracted approximately 2 hours ago was assessed, full route is intact therefore CoePak was mixed vigorously and tooth was placed back into original location and adhered using Coepak, tooth 9. Also loose, this was adhered anteriorly and posteriorly. Patient tolerated procedure well without any complications or concerns. Medical Decision Making Medical Decision Making [facility] Narrative: This is a 74-year-old female who presents emergency department with complaints of facial pain status post nonsyncopal fall which occurred this afternoon. She tripped over a curb causing her to fall directly onto her face. On arrival, she is neurologically intact, no focal deficits on examination. Head CT, face CT, and C-spine CT was obtained revealing nasal bridge fracture. Discussed findings with patient. Patient was assessed by my attending physician, Dr. Fernandez given extracted tooth with a full route in place status post the fall, we were able to cement this back into place. Patient tolerated procedure well, see procedure note. She is following up with her dentist tomorrow morning. Advised to eat soft foods. Given strict return precautions. She understands and agrees with plan. She is already on Augmentin due to cat bites from several days ago, advised to continued. Also given referral to ENT for follow-up in regards to nasal bridge fracture. 3:45 PM 12/22/2024 (Sissy Robertson PA-C): Tooth was placed back in by my attending physician, Dr. Fernandez, see procedure note for detail Differential Diagnosis Differential Diagnoses: The differential diagnosis associated with the presentation includes Fracture, ICH, fall, contusion Admission/Observation Consideration of admission/observation: Escalation of care including admission/observation considered Lab Data [facility] Lab Attestation statement: I reviewed the patient's lab results. No leukocytosis, stable H&H, chemistry revealing no significant electrolyte derangement. 12/22/24 15:36 12/22/24 15:36 Labs: Lab Results 12/22/24 Range/Units 15:36 WBC 9.8 (4.8-10.8) X10*3/uL RBC 4.34 (4.20-5.50) X10*6/uL Hgb 13.9 (12.0-16.0) g/dl Hct 39.5 (37.0-47.0) % MCV 91.0 (80.0-98.0) fL MCH 32.0 (27.0-33.0) pg MCHC 35.2 H (31.0-35.0) g/dl RDW 12.5 (11.0-16.0) % Plt Count 301 (160-400) X10*3/uL MPV 10.2 (9.4-12.3) fL Immature Gran % (Auto) 0.4 (0.0-0.4) % Neut % (Auto) 68.7 (45-73) % Lymph % (Auto) 21.6 (20-40) % Carroll % (Auto) 7.0 (2-11) % Eos % (Auto) 1.6 (0-4) % Baso % (Auto) 0.7 (0-2) % Lymph # (Auto) 2.1 (1.2-4.9) X10*3/uL Carroll # (Auto) 0.7 (0.1-1.2) X10*3/uL Eos # (Auto) 0.2 (0.0-0.4) X10*3/uL Baso # (Auto) 0.1 (0.0-0.2) X10*3/uL Abs Immat Gran (auto) 0.04 H (0.00-0.03) X10*3/uL Absolute Neuts (auto) 6.8 (2.0-8.3) x10*3/uL Absolute Nucleated RBC 0.000 (0.0-0.012) X10*3/uL Nucleated RBC % (auto) 0.0 (0.0-0.2) /100WBC Sodium 140 (135-145) mmol/L Potassium 4.4 (3.3-5.1) mmol/L Chloride 108 (96-108) mmol/L Carbon Dioxide 24 (22-29) mmol/L Anion Gap 12 (12-20) BUN 12 (9-16) mg/dL Creatinine 0.60 (0.5-1.4) mg/dL Estim Creat Clear Calc 76.7 Estimated GFR > 60 Random Glucose 112 (60-115) mg/dL Calcium 9.8 (8.4-10.2) mg/dL Total Bilirubin 0.6 (0.0-1.0) mg/dL AST 20 (5-31) U/L ALT 21 (0-31) U/L Alkaline Phosphatase 81 (39-117) U/L Total Protein 6.9 (6.5-8.0) g/dL Albumin 4.3 (3.5-5.0) g/dL Radiology Impression Discussion of test interpretation with radiology: I have reviewed the radiologist's reading. Radiologist Impression: FINDINGS: There is no acute ischemic change. There is no intracranial hemorrhage. There is no mass-effect or midline shift. Basal cisterns and ventricles are within normal limits for age/cerebral volume. Orbits are symmetrical and unremarkable. Paranasal sinuses and mastoid air cells are pneumatized. There are no bony abnormalities. CT/CT head/brain wo IV con IMPRESSION: No acute intracranial abnormality. Electronically signed by: Frederic Frausto MD 12/22/2024 03:56 PM EDT RP Dictated By: Frederic Frausto MD FINDINGS: There are fractures of the tips of the nasal bones. The facial bones are otherwise intact. No additional fractures are identified. The globes are intact. There is a polyp versus mucous retention cyst in the right maxillary sinus. The paranasal sinuses are otherwise clear. The visualized portion of the brain is unremarkable. No soft tissue abnormality is identified. CT/CT facial bones wo IV con IMPRESSION: Fractures of the tips of the nasal bones. Electronically signed by: Gabriele Aponte MD 12/22/2024 03:53 PM EDT RP Dictated By: Gabriele Aponte MD CT/CT cervical spine wo IV con IMPRESSION: No acute fracture. Multilevel degenerative changes with degenerative disc disease and facet osteoarthritis. Multinodular thyroid gland goiter, follow-up ultrasound thyroid gland, nonemergent. Electronically signed by: Frederic Frausto MD 12/22/2024 03:59 PM EDT RP Dictated By: Frederic Frausto MD External Record Review External record reviewed: Inpatient record, Office record, Outpatient record, Prior outpatient labs, Prior outpatient radiology, Primary care record and Outside ED record Discharge Plan Discharge Clinical Impression: Fall, Fracture of nasal bone, Tooth fracture, Loose tooth due to trauma Patient Disposition: Home, Self-Care Instructions: Facial Fracture (ED), Acute Dental Trauma (ED), Fall Prevention (ED) Additional Instructions: You were seen in the emergency department after a fall. Your CT of your facial bones does show multiple nasal bone fractures. Continue taking the Augmentin that is already previously prescribed to you. Finish the entire course. No underwater swimming, blowing nose. Need to follow-up with the hearing consultant. We also applied putty to your teeth as 1 of your teeth fell out after the fall, and your other to was loose therefore we adhered this. You need follow-up with your dentist as scheduled. If any new or worsening symptoms occur including but not limited to worsening headache, dizziness, severe chest pain or shortness for breath, please seek emergent care. ENT of [address], [place] [address] Prescriptions: No Action loratadine 10 mg tablet 10 mg PO DAILY cholecalciferol (vitamin D3) 25 mcg (1,000 unit) capsule 25 mcg PO DAILY montelukast 10 mg tablet 10 mg PO DAILY docusate sodium [Colace] 100 mg capsule 100 mg PO DAILY famotidine 20 mg tablet 20 mg PO BID metformin 500 mg tablet 500 mg PO DAILY losartan 100 mg tablet 100 mg PO DAILY Qty: 90 4RF Interventions: ED Discharge Assessment Last Done: 12/22/24 17:50 Discharge Date/Time: 12/22/24 17:51 Print Language: Georgian
[2024-12-22 15:23] VITALS: BP 139/77; PULSE 72; RESP 18; O2SAT 98
[2024-12-22 15:41] LABS: MANUAL DIFF FLAG NO
[2024-12-22 15:57] LABS: Alanine Aminotransferase 21 U/L (0-31); Albumin Level 4.3 g/dL (3.5-5.0); Alkaline Phosphatase 81 U/L (39-117); Anion Gap 12 (12-20); Aspartate Amino Transferase 20 U/L (5-31); Blood Urea Nitrogen 12 mg/dL (9-16); Calcium 9.8 mg/dL (8.4-10.2); Carbon Dioxide 24 mmol/L (22-29); Chloride 108 mmol/L (96-108); Creatinine Clr Calc Pharmacy 76.7; Estimated Glomerular Filt Rate > 60; Potassium 4.4 mmol/L (3.3-5.1); Sodium 140 mmol/L (135-145); Total Protein 6.9 g/dL (6.5-8.0)
[2024-12-22 16:01] LABS: Hematocrit 39.5 % (37.0-47.0); Hemoglobin 13.9 g/dl (12.0-16.0); Imm Gran Abs Auto 0.04 X10*3/uL (0.00-0.03); Imm Gran Pct Auto 0.4 % (0.0-0.4); Lymphocytes Absolute Auto 2.1 X10*3/uL (1.2-4.9); Mean Corpuscular HGB Conc 35.2 g/dl (31.0-35.0); Mean Corpuscular Hemoglobin 32.0 pg (27.0-33.0); Mean Corpuscular Volume 91.0 fL (80.0-98.0); NRBC Abs Auto 0.000 X10*3/uL (0.0-0.012); NRBC Pct Auto 0.0 /100WBC (0.0-0.2); Platelet Count 301 X10*3/uL (160-400); Red Blood Count 4.34 X10*6/uL (4.20-5.50); White Blood Count 9.8 X10*3/uL (4.8-10.8)
[2024-12-22 17:50] VITALS: BP 139/77; PULSE 72; RESP 18; TEMP 36.7; O2SAT 98
--- OUTSIDE RECORDS SUMMARY | 2024-12-22 19:07 | XMS_ITS | Clinical Summary ---
Author Organization [facility] Address [address] [facility] [address] [place] [phone] Phone Care Team Providers Care Destination Sign Repairer Name Role Phone Melchor Mejia MD Primary [...] topic Medical Devices Not on file Insurance [facility] [employer] [facility] Care Teams Destination Sign Repairer Relationship Specialty Start Date End Date Melchor Mejia MD PCP - General Internal Medicine 09/30/15 Additional Source Comments The information contained in this document represents components of the legal health record. It is not the complete legal health record.[facility]
--- OUTSIDE RECORDS SUMMARY | 2024-12-22 19:07 | XMS_ITS | Encounter Summary ---
Author Organization [facility] Address [address] [facility] [address] [place] [address] Phone Care Team Providers Care Criminal Psychologist Name Role Phone Melchor Mejia MD Primary Care Provide r Encounter Details Date Type Department Care Team (Late st Contact Info) Description 11/28/2015 Transcribe Orders [facility] [place] MRI, [address] [address] Omid Yin MD [address] [place] [id number] [email or web address] Social History Tobacco Use Types Packs/Day [...] on filedocumented in this encounter Care Teams Criminal Psychologist Relationship Specialty Start Date End Date Melchor Mejia MD PCP - General Internal Medicine 09/30/15 documented as of this encounter Additional Source Comments The information contained in this document represents components of the legal health record. It is not the complete legal health record.[facility]
== END 2024-12-22 17:51 | disposition home or self-care (01) ==
PROVIDERS: Physician Assistant Medical; Emergency Provider Emergency Medicine; PCP Family Medicine
DX: S02.2XXA Fracture of nasal bones, initial encounter for closed fracture (principal); S02.5XXA Fracture of tooth (traumatic), initial encounter for closed fracture; R51.9 Headache, unspecified; R04.0 Epistaxis; M54.2 Cervicalgia; W01.0XXA Fall on same level from slipping, tripping and stumbling without subsequent striking against object, initial encounter; Z91.81 History of falling; Y93.01 Activity, walking, marching and hiking; Y92.480 Sidewalk as the place of occurrence of the external cause; Y99.9 Unspecified external cause status; Z79.899 Other long term (current) drug therapy
CPT/HCPCS: 36415; 70450; 70486; 72125; 80053; 85025; 96365; 99284; 99285; J0131

== ENCOUNTER → 2024-12-22 14:48 | Outpatient (BNV) | payer MEDICARE, BC, SELFPAY | PROVIDERS: Emergency Provider Emergency Medicine; PCP Family Medicine; Visit Provider Radiology Diagnostic Radiology | DX: S02.2XXA Fracture of nasal bones, initial encounter for closed fracture (principal) | CPT/HCPCS: 70486 ==

== ENCOUNTER → 2025-04-05 10:12 | Outpatient (BNV) | payer MEDICARE, BC, SELFPAY | PROVIDERS: Admitting Provider Internal Medicine Critical Care Medicine; Emergency Provider Emergency Medicine; PCP Family Medicine; Visit Provider Internal Medicine | DX: R00.0 Tachycardia, unspecified (principal) | CPT/HCPCS: 93010 ==

== ENCOUNTER → 2025-04-05 10:12 | Outpatient (BNV) | payer MEDICARE, BC, SELFPAY | PROVIDERS: Emergency Provider Emergency Medicine; PCP Family Medicine; Visit Provider Radiology Diagnostic Radiology | DX: A04.71 Enterocolitis due to Clostridium difficile, recurrent (principal); R91.8 Other nonspecific abnormal finding of lung field | CPT/HCPCS: 71045; 74177 ==

== ENCOUNTER → 2025-04-05 17:01 | Outpatient (BNV) | payer MEDICARE, BC, SELFPAY | PROVIDERS: Admitting Provider Internal Medicine Critical Care Medicine; Emergency Provider Emergency Medicine; PCP Family Medicine; Visit Provider Internal Medicine Critical Care Medicine | DX: E87.21 Acute metabolic acidosis (principal); J96.01 Acute respiratory failure with hypoxia; J11.1 Influenza due to unidentified influenza virus with other respiratory manifestations; J11.00 Influenza due to unidentified influenza virus with unspecified type of pneumonia | CPT/HCPCS: 99223 ==

== ENCOUNTER → 2025-04-05 17:01 | Outpatient (BNV) | payer MEDICARE, BC, SELFPAY | PROVIDERS: Admitting Provider Internal Medicine Critical Care Medicine; Emergency Provider Emergency Medicine; PCP Family Medicine; Visit Provider Nurse Practitioner Acute Care | DX: I10 Essential (primary) hypertension (principal) | CPT/HCPCS: 99232 ==